=== PATIENT | female | born 1990 | race African-American/Black ===

== ENCOUNTER 2020-08-23 17:07 | Emergency (ER) | payer OTHER ==
[~2020-08-23] VITALS: Ht 185.4 cm; Wt 105.2 kg
[2020-08-23 18:56] LABS: BASO # 0.1 10^3/uL (0.0-0.2); BASO % 0.7 % (0.0-1.0); EOS # 0.1 10^3/uL (0.0-0.5); HEMATOCRIT 41.3 % (36.0-47.0); HEMOGLOBIN 13.6 g/dl (12.0-15.5); LYMPH # 2.6 10^3/uL (1.5-5.0); MEAN CORPUSCULAR HEMOGLOBIN 29.2 pg (27.0-33.0); MEAN CORPUSCULAR HGB CONC 32.9 g/dl (32.0-36.5); MEAN CORPUSCULAR VOLUME 88.8 fl (80.0-96.0); MONO # 0.6 10^3/uL (0.0-0.8); MONO % 7.3 % (0.0-5.0); NEUTROPHILS # 5.2 10^3/uL (1.5-8.5); NEUTROPHILS % 60.8 % (36.0-66.0); PLATELET COUNT, AUTOMATED 396 10^3/uL (150-450); RED BLOOD COUNT 4.65 10^6/uL (4.00-5.40); WHITE BLOOD COUNT 8.6 10^3/uL (4.0-10.0)
[2020-08-23 19:07] LABS: PARTIAL THROMBOPLASTIN TIME 32.7 SECONDS (24.2-38.5); PROTHROMBIN TIME 13.4 SECONDS (12.5-14.3)
[2020-08-23 19:10] LABS: D-DIMER QUANT 805.12 ng/ml (<500)
[2020-08-23 19:25] LABS: ALBUMIN 4.1 GM/DL (3.2-5.2); ALT/SGPT 26 U/L (12-78); BILIRUBIN,DIRECT < 0.1 MG/DL (0.0-0.2); BILIRUBIN,TOTAL 0.3 MG/DL (0.2-1.0); C REACTIVE PROTEIN QUANTITATIV < 0.30 MG/DL (0.00-0.30); TOTAL PROTEIN 8.4 GM/DL (6.4-8.2)
[2020-08-23 19:32] LABS: ERYTHROCYTE SEDIMENTATION RATE 18 mm/hr (0-20)
[2020-08-23] MEDS ORDERED: ISOVUE-370 76% 100ML VIAL As Ordered ONE (20:18)
--- NOTE | 2020-08-23 21:32 | REPVR ---
PROCEDURE INFORMATION: Exam: CT Angiography Chest With Contrast Exam date and time: 08/23/2020 8:42 PM Age: 29 years old Clinical indication: Chest pain TECHNIQUE: Imaging protocol: Computed tomographic angiography of the chest with contrast. 3D rendering (Not supervised by radiologist): MIP and/or 3D reconstructed images were created by the technologist. Radiation optimization: All CT scans at this facility use at least one of these dose optimization techniques: automated exposure control; mA and/or kV adjustment per patient size (includes targeted exams where dose is matched to clinical indication); or iterative reconstruction. Contrast material: ISOVUE 370; Contrast volume: 75 ml; Contrast route: INTRAVENOUS (IV); COMPARISON: No relevant prior studies available. FINDINGS: Pulmonary arteries: Normal. No pulmonary emboli. Aorta: Unremarkable. No aortic aneurysm. No aortic dissection. Lungs: Unremarkable. No consolidation. No masses. Pleural spaces: Unremarkable. No pneumothorax. No pleural effusion. Heart: Unremarkable. No cardiomegaly. No pericardial effusion. Lymph nodes: Unremarkable. No enlarged lymph nodes. Bones/joints: Unremarkable. No acute fracture. Soft tissues: Unremarkable. IMPRESSION: No acute findings. Electronically signed by: Jama Metz On 08/23/2020 21:32:30 PM
[2020-08-23] MEDS ORDERED: IBUP80TA PO (22:12)
[2020-08-23] MEDS ORDERED: BENA25CA4 PO (22:12)
[2020-08-23 22:21] VITALS: BP 121/69
--- NOTE | 2020-08-24 08:55 | ECGEPIP ---
[facility] - ED Test Date: 2020-08-23 Pat Name: TANIKA DANIEL Department: Room: - Gender: Female [employer]: : 1990 Requested By: CARRILLO Jay Order Number: [id number] Reading MD: Laisha Sherwood Measurements Intervals [place] Rate: 65 P: 49 OR: 151 QRS: 48 QRSD: 84 T: 35 QT: 398 QTc: 414 Interpretive Statements SINUS RHYTHM WITH SINUS ARRHYTHMIA NO PRIOR Electronically Signed on 08-24-2020 8:54:55 EST by Laisha Sherwood
== END 2020-08-23 22:31 | disposition home or self-care (01) ==
LOC: M ED 17:07
DX: R07.9 Chest pain, unspecified (principal); R05 Cough; T50.Z95A Adverse effect of other vaccines and biological substances, initial encounter; X58.XXXA Exposure to other specified factors, initial encounter; Y92.89 Other specified places as the place of occurrence of the external cause; Z91.018 Allergy to other foods; F17.210 Nicotine dependence, cigarettes, uncomplicated
CPT/HCPCS: 36415; 71275; 80047; 80076; 84484; 84702; 85025; 85379; 85610; 85652; 85730; 86140; 93005; 99284; Q9967

== ENCOUNTER 2020-08-25 15:23 | Emergency (ER) | payer OTHER ==
[~2020-08-25] VITALS: Ht 188 cm; Wt 106.2 kg
[~2020-08-25 15:23] MED LIST: BENA25CA4 PO; IBUP80TA PO
[2020-08-25 15:24] VITALS: BP 103/66
[2020-08-25] MEDS ORDERED: ONDANSETRON 4 MG ORAL DISINTEGRATING TAB PO ONE (16:00)
[2020-08-25] MEDS ORDERED: ONDA4TAB6 PO (16:00)
--- OUTSIDE RECORDS SUMMARY | 2020-08-25 16:33 | CCD ---
Author Author [facility] Address Unknown Phone Unavailable Support Name Relationship Address Phone [facility] Next Of Kin [address] [place] [address] Unavailable Re-disclosure Warning The records that you are about to access may contain information from federally-assisted alcohol or drug abuse programs. If such information is present, then the following federally mandated warning applies: This information has been disclosed to you from records protected by federal confidentiality rules (42 CFR part 2). The federal rules prohibit you from making any further disclosure of this information unless further disclosure is expressly permitted by the written consent of the person to whom it pertains or as otherwise permitted by 42 CFR part 2. A general authorization for the release of medical or other information is NOT sufficient for this purpose. The Federal rules restrict any use of the information to criminally investigate or prosecute any alcohol or drug abuse patient.The records that you are about to access may contain highly sensitive health information, the redisclosure of which is protected by Article 27-F of the [facility] Public Health law. If you continue you may have access to information: Regarding HIV / AIDS; Provided by facilities licensed or operated by the [facility] Office of Mental Health; or Provided by the [facility] Office for People With Developmental Disabilities. If such information is present, then the following [facility] mandated warning applies: This information has been disclosed to you from confidential records which are protected by state law. State law prohibits you from making any further disclosure of this information without the specific written consent of the person to whom it pertains, or as otherwise permitted by law. Any unauthorized further disclosure in violation of state law may result in a fine or shelter sentence or both. A general authorization for the release of medical or other information is NOT sufficient authorization for further disc losure. Insurance Providers Payer name Policy type / Coverage type Policy ID Covered democrat ID Covered democrat's relationship to tanner Policy Tanner Plan Information [facility] [employer] [id number]
--- OUTSIDE RECORDS SUMMARY | 2020-08-25 16:39 | CCD ---
Author Author [facility] Address Unknown Phone Unavailable Support Name Relationship Address Phone [facility] Next Of Kin [address] [place] [address] Unavailable Re-disclosure Warning The records that you [...] is protected by Article 27-F of the [facility] Public Health law. If you continue you may have access to information: Regarding HIV / AIDS; Provided by facilities licensed or operated by the [facility] Office of Mental Health; or Provided by the [facility] Office for People With Developmental Disabilities. If such information is present, then the following [facility] mandated warning applies: This information has [...] law may result in a fine or group home sentence or both. A general authorization for the release of medical or other information is NOT sufficient authorization for further disc losure. Insurance Providers Payer name Policy type / Coverage type Policy ID Covered alliance party ID Covered alliance party's relationship to tanner Policy Tanner Plan Information [facility] [employer] [id number]
== END 2020-08-25 16:09 | disposition home or self-care (01) ==
LOC: M ED 15:23
DX: R11.2 Nausea with vomiting, unspecified (principal); R19.7 Diarrhea, unspecified; F41.9 Anxiety disorder, unspecified; F17.200 Nicotine dependence, unspecified, uncomplicated; Z91.013 Allergy to seafood
CPT/HCPCS: 99282; Q0162

== ENCOUNTER 2020-09-29 14:21 | Emergency (ER) | payer OTHER ==
[~2020-09-29] VITALS: Ht 182.9 cm; Wt 100.4 kg
[~2020-09-29 14:21] MED LIST changes: +ONDA4TAB6 PO
[2020-09-29] MEDS ORDERED: PREPARATION H SUPP (HEMORRHOID) PR ONE (16:10)
[2020-09-29 17:17] VITALS: BP 114/58
== END 2020-09-29 17:18 | disposition home or self-care (01) ==
LOC: M ED 14:21
DX: K64.8 Other hemorrhoids (principal); F17.200 Nicotine dependence, unspecified, uncomplicated; F41.9 Anxiety disorder, unspecified

== ENCOUNTER 2020-10-22 00:29 | Emergency (ER) | payer OTHER ==
[~2020-10-22] VITALS: Ht 180.3 cm; Wt 94.1 kg
[2020-10-22] MEDS ORDERED: ACET-683 PO (00:39)
[2020-10-22] MEDS ORDERED: TRAM50TA2 PO (00:39)
[2020-10-22 01:28] VITALS: BP 136/82
[2020-10-22 01:48] LABS: BASO % 0.2 % (0.0-1.0); EOS % 0.1 % (0.0-3.0); HEMATOCRIT 41.3 % (36.0-47.0); HEMOGLOBIN 12.2 g/dl (12.0-15.5); LYMPH # 1.2 10^3/uL (1.5-5.0); LYMPH % 9.8 % (24.0-44.0); MEAN CORPUSCULAR HEMOGLOBIN 29.1 pg (27.0-33.0); MEAN CORPUSCULAR HGB CONC 29.5 g/dl (32.0-36.5); MEAN CORPUSCULAR VOLUME 98.6 fl (80.0-96.0); MONO # 0.8 10^3/uL (0.0-0.8); MONO % 6.6 % (2.0-8.0); NEUTROPHILS # 10.2 10^3/uL (1.5-8.5); PLATELET COUNT, AUTOMATED 297 10^3/uL (150-450); RED BLOOD COUNT 4.19 10^6/uL (4.00-5.40); WHITE BLOOD COUNT 12.3 10^3/uL (4.0-10.0)
[2020-10-22 02:07] LABS: ALBUMIN 3.3 GM/DL (3.2-5.2); ALT/SGPT 104 U/L (12-78); BILIRUBIN,DIRECT < 0.1 MG/DL (0.0-0.2); BILIRUBIN,TOTAL 0.1 MG/DL (0.2-1.0); BLOOD UREA NITROGEN 10 MG/DL (7-18); CALCIUM LEVEL 8.6 MG/DL (8.5-10.1); CARBON DIOXIDE LEVEL 28 MEQ/L (21-32); CHLORIDE LEVEL 109 MEQ/L (98-107); CK-MB VALUE MASS 2.4 NG/ML (<3.6); CPK CREATINE PHOSPHOKINASE 146 U/L (26-192); GLOMERULAR FILTRATION RATE > 60.0 (>60); GLUCOSE, FASTING 115 MG/DL (70-100); LIPASE 97 U/L (73-393); MB/CK RELATIVE INDEX 1.64 (< OR =4); POTASSIUM SERUM 4.3 MEQ/L (3.5-5.1); SODIUM LEVEL 142 MEQ/L (136-145); TOTAL PROTEIN 7.1 GM/DL (6.4-8.2); TROPONIN I < 0.02 NG/ML (< 0.10)
--- NOTE | 2020-10-22 20:53 | ECGEPIP ---
[facility] - ED Test Date: 2020-10-22 Pat Name: TANIKA DANIEL Department: Room: - Gender: Female [employer]: SACHIN : 1990 Requested By: JAZIEL Sotomayor Order Number: [id number] Reading MD: Gwyn Escobedo Measurements Intervals [place] Rate: 55 P: 44 DC: 138 QRS: 40 QRSD: 76 T: 24 QT: 424 QTc: 405 Interpretive Statements Sinus bradycardia SIMILAR TO 08/23/20 Electronically Signed on 10-22-2020 20:52:39 EDT by Gwyn Escobedo
== END 2020-10-22 02:00 | disposition left against medical advice (07) ==
LOC: M ED 00:29
DX: Z53.20 Procedure and treatment not carried out because of patient's decision for unspecified reasons (principal)

== ENCOUNTER 2021-06-20 15:40 | Inpatient (IN) | payer OTHER ==
[~2021-06-20] VITALS: Ht 182.9 cm; Wt 95.5 kg
[~2021-06-20 15:40] MED LIST changes: +ACET-683 PO; +TRAM50TA2 PO
[2021-06-20 16:15] LABS: HEMATOCRIT 44.7 % (36.0-47.0); HEMOGLOBIN 14.4 g/dl (12.0-15.5); MEAN CORPUSCULAR HGB CONC 32.2 g/dl (32.0-36.5); MEAN CORPUSCULAR VOLUME 89.9 fl (80.0-96.0); PLATELET COUNT, AUTOMATED 422 10^3/uL (150-450); RED BLOOD COUNT 4.97 10^6/uL (4.00-5.40); WHITE BLOOD COUNT 7.3 10^3/uL (4.0-10.0)
[2021-06-20 16:54] LABS: ACETAMINOPHEN LEVEL < 2.0 UG/ML (10.0-30.0); ALT/SGPT 40 U/L (12-78); BILIRUBIN,DIRECT 0.2 MG/DL (0.0-0.2); BILIRUBIN,TOTAL 0.5 MG/DL (0.2-1.0); BLOOD UREA NITROGEN 11 MG/DL (7-18); CALCIUM LEVEL 9.5 MG/DL (8.5-10.1); CARBON DIOXIDE LEVEL 29 MEQ/L (21-32); CHLORIDE LEVEL 104 MEQ/L (98-107); CREATININE FOR GFR 0.71 MG/DL (0.55-1.30); ETHYL ALCOHOL (ETHANOL) < 0.003 % (0.000-0.010); GLOMERULAR FILTRATION RATE > 60.0 (>60); GLUCOSE, FASTING 94 MG/DL (70-100); POTASSIUM SERUM 4.1 MEQ/L (3.5-5.1); SALICYLATE LEVEL < 1.7 MG/DL (5.0-30.0); SODIUM LEVEL 139 MEQ/L (136-145); THYROID STIMULATING HORMONE 0.795 uIU/ML (0.358-3.740)
[2021-06-20 16:55] LABS: HCG, SERUM QUALITATIVE NEGATIVE (NEGATIVE)
[2021-06-20 17:20] LABS: AMPHETAMINES LEVEL URINE NEGATIVE (NEGATIVE); BARBITURATES URINE NEGATIVE (NEGATIVE); BENZODIAZEPINES URINE NEGATIVE (NEGATIVE); CANNABINOIDS URINE NEGATIVE (NEGATIVE); COCAINE METABOLITE URINE NEGATIVE (NEGATIVE); METHADONE URINE NEGATIVE (NEGATIVE); OPIATES URINE NEGATIVE (NEGATIVE); PHENCYCLIDINE URINE NEGATIVE (NEGATIVE)
--- OUTSIDE RECORDS SUMMARY | 2021-06-20 18:08 | CCD ---
Author Author [facility] Organization [facility] Address Unknown Phone Unavailable Care Team Providers Care Fashion Editor Name Role Phone Maxx LEYVA MD Unavailable Unavailable Maxx LEYVA MD Unavailable Unavailable Maxx LEYVA MD Unavailable Unavailable Maxx LEYVA MD Unavailable Unavailable Maxx LEYVA MD Unavailable Unavailable Maxx LEYVA MD Unavailable Unavailable Maxx LEYVA MD Unavailable Unavailable Maxx LEYVA MD Unavailable Unavailable Maxx LEYVA MD Unavailable Unavailable Maxx LEYVA MD Unavailable Unavailable Maxx LEYVA MD Unavailable Unavailable Maxx LEYVA MD Unavailable Unavailable Maxx LEYVA MD Unavailable Unavailable Maxx LEYVA MD Unavailable Unavailable Maxx LEYVA MD Unavailable Unavailable Maxx LEYVA MD Unavailable Unavailable TURRIN, ANTHONY Unavailable Unavailable TURRIN, ANTHONY Unavailable Unavailable TURRIN, ANTHONY Unavailable Unavailable CHELSEARIN, ANTHONY Unavailable Unavailable Maxx LEYVA MD Unavailable Unavailable Maxx LEYVA MD Unavailable Unavailable Maxx LEYVA MD Unavailable Unavailable Maxx LEYVA MD Unavailable Unavailable Maxx LEYVA MD Unavailable Unavailable Maxx LEYVA MD Unavailable Unavailable Maxx LEYVA MD Unavailable Unavailable Maxx LEYVA MD Unavailable Unavailable Maxx LEYVA MD Unavailable Unavailable Maxx LEYVA MD Unavailable Unavailable Maxx LEYVA MD Unavailable Unavailable Maxx LEYVA MD Unavailable Unavailable ZULICK, C CHACORTA MD Unavailable Unavailable ZULICK, C CHACORTA MD Unavailable Unavailable ZULICK, C CHACORTA MD Unavailable Unavailable ZULICK, C CHACORTA MD Unavailable Unavailable [facility] Unavailable Unavailable CHANLIECCO, C ADI MD Unavailable Unavailable CHANLIECCO, C ADI MD Unavailable Unavailable CHANLIECCO, C ADI MD Unavailable Unavailable CHANLIECCO, C ADI MD Unavailable Unavailable CHANLIECCO, C ADI MD Unavailable Unavailable CHANLIECCO, C ADI MD Unavailable Unavailable CHANLIECCO, C ADI MD Unavailable Unavailable CHANLIECCO, C ADI MD Unavailable Unavailable CHANLIECCO, C ADI MD Unavailable Unavailable CHANLIECCO, C ADI MD Unavailable Unavailable CHANLIECCO, C ADI MD Unavailable Unavailable Re-disclosure Warning The records that you [...] is protected by Article 27-F of the [place] Public Health law. If you continue you may have access to information: Regarding HIV / AIDS; Provided by facilities licensed or operated by the [facility] Office of Mental Health; or Provided by the [facility] Office for People With Developmental Disabilities. If such information is present, then the following [facility] mandated warning applies: This information has [...] law may result in a fine or mcc sentence or both. A general authorization for the release of medical or other information is NOT sufficient authorization for further disc losure. Allergies and Adverse Reactions Type Description Substance Reaction Status Data Source(s ) No Known Drug Allergies No Known Drug Allergies [facility] Propensity to adverse reactions TREES AND DOGS TREES AND DOGS [facility] Propensity to adverse reactions shellfish shellfish [facility] Encounters Encounter Providers Location Date Indications Data Source(s ) Outpatient Attender: CHACORTA LEYVA MDAtt darinel: ANTHONY ZAVALAConsultant: [facility] 10/20/2020 07:05:00 PM EDT - 10/21/2020 06:15:00 PM EDT [facility] Patient discharged. Outpatient Attender: CHACORTA LEYVA MD Family Practice 10/20/2020 0 2:00:00 PM EDT [facility] ([facility]) Outpatient Attender: CHACORTA LEYVA MD 2020 11:16:36 AM EDT - 10/20/2020 03:13:00 PM EDT [facility] Patient discharged. Outpatient Attender: CHACORTA LEYVA MD 2020 10:53:43 AM EDT - 11/07/2020 01:22:00 PM EDT [facility] Patient discharged. Outpatient Attender: CHACORTA LEYVA MDConsultant: [facility] 10/20/2020 09:32:00 AM EDT - 10/20/2020 09:32:00 AM EDT [facility] Emergency Attender: ADI TAPIA MDConsultant: [facility] 10/08/2020 11:07:00 AM EDT - 10/08/2020 12:21:00 PM EDT [facility] Patient discharged. Immunizations Vaccine Date Status Description Data Source(s) COVID-19 VACCINE Pfizer 08/23/2020 12:00:00 AM EST completed [facility] Vaccine Series Complete: NOThis Data was Submitted to [facility] Via Actual[facility]eds. Medications Medication Brand Name Start Date Product Form Dose Route Admi nistrative Instructions Pharmacy Instructions Status Indications Reaction Description Data Source(s) tramadol hydrochloride 50 MG Oral Tablet Tramadol HCL 10/20/2020 12:00:00 AM EDT active [facility] ([facility]) Insurance Providers Payer name Policy type / Coverage type Policy ID Covered green party ID Covered green party's relationship to dias Policy Dias Plan Information [facility] ACTIVE DUTY [id number] SP [id number] [facility] - O/P [id number] 18 [id number] [facility] [place] [id number] 18 [id number] [facility] - PHYSICIAN [id number] [id number] 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 Diagnosis 10/20/2020 07:05:00 PM EDT [facility] [id number] Encounter for other preprocedural examin ation Encounter for other preprocedural examination Diagnosis 10/20/2020 02:36:00 PM EDT [facility] Z1152 ENCOUNTER FOR SCREENING FOR COVID-19 ENCOUNTER F OR SCREENING FOR COVID-19 Diagnosis 10/20/2020 09:32:00 AM EDT [facility] [id number] Nicotine dependence, cigarettes, uncompl icated Nicotine dependence, cigarettes, uncomplicated Diagnosis 10/08/2020 11:07:00 AM EDT [facility] K649 Unspecified hemorrhoids Unspecified hemorrhoids Diagno sis 10/08/2020 11:07:00 AM EDT [facility] K625 Hemorrhage of anus and rectum Hemorrhage of anus and r ectum Diagnosis 10/08/2020 11:07:00 AM EDT [facility] Surgeries/Procedures No Information Results ID Date Data Source [id number] 10/20/2020 07:05:00 PM EDT [facility] 1 OrderSheet [facility] Emergency Department [address] [place] [address] Phone #: ext- [phone] 10/20/2020 19:04 Patient: TANIKA DANIEL I Sex: F : 1990 Age: 29yWEIGHT:93.8 kg (S)ALLERGIES: Shellfish-derived ProductsCHIEF COMPLAINT: hemorrhoids, rectal painDIAGNOSIS: HemorrhoidsLAB ORDERSOrder Description Priority Entered Acknowledged InitialedDIAGNOSTIC STUDY ORDERSOrder Description Priority Entered Acknowledged InitialedMEDICATION/IV/DRIP/FLUID ORDERSOrder Description Priority Entered Acknowledged InitialedLR IV : 50 mL/hr 19:41 10/20/2020 19:59 Anthony Rodriguez RN, M.D.;Dilaudid IVP 1 mg 19:41 10/20/2020 20:00 Harvinder(HIGH ALERT Anthony Zavala RNMEDICATION) Nino;Lidocaine Viscous 19:42 10/20/2020 20:00 HarvinderPO 15 mL (apply to Anthony Zavala RNhemmorhoid) Nino;GENERAL ORDERSOrder Description Priority Entered Acknowledged InitialedConsult - General 19:59 10/20/2020 19:59 StevenSurgery Anthony Zavala RN, M.D.;[Electronically signed by Harvinder Ortega RN (22:05 10/20/2020)][Electronically signed by Anthony Zavala M.D. (22:50 10/20/2020)][Electronically locked by Harvinder Ortega RN (22:05 10/20/2020)] Name Value Range Interpretation Code Description Data Jada rce(s) Supporting Document(s) ID Date Data Source [id number] 10/20/2020 07:05:00 PM EDT [facility] 1 Medication Reconciliation Report [facility] Emergency Department [address] [place] [address] Phone #: ext- [phone] 10/20/2020 19:04 Patient: TANIKA DANIEL I Sex: F : 1990 Age: 29yWeight: 93.8 kgHeight/Length: 71 in.BMI: 28.9ALLERGIES: Shellfish-derived ProductsThe patient's Home Medications are listed below:THE FOLLOWING MEDICATIONS NEED TO BE RECONCILED: Preparation H External, suppisotory and cream Tramadol HCL Oral 50 mg, 2x a dayThe source(s) of the original Home Medication information:patientThe following Medications were given to the patient in the Emergency Department:LR [IV] IV Fluids bolus 0, then 50 mL/hr, administered: 19:59 1Dilaudid [IVP] IVP 1 mg, administered: 20:00 1Lidocaine Viscous [PO] PO 15 mL, administered: 20:00 10/20/2020The following Medications were prescribed to the patient:None. Name Value Range Interpretation Code Description Data Jada rce(s) Supporting Document(s) ID Date Data Source [id number] 10/20/2020 07:05:00 PM EDT [facility] 1 Medication Administration Record [facility] Emergency Department [address] [place] [address] Phone #: ext- [phone] 10/20/2020 19:04 Patient: TANIKA DANIEL I Sex: F : 1990 Age: 29yWeight: 93.8 kgHeight/Length: 71 inBMI: 28.9ALLERGIES: Shellfish-derived Products Date/Time Medication Administered Medication OrderedStart LR [IV] LR IV : 50 mL/hr19:59 10/20/2020 Dose: IV FluidsStevmarnie Ortega RN Rate: 50 mL/hr---- Dispensed: 1000 mL bagContinued Upon Admission Site: #1 left AC21:54 10/20/2020teven YAZMIN OrtegaGiven DILAUDID [IVP] (HYDROMORPHONE Dilaudid IVP 1 mg (HIGH ALERT20:00 10/20/2020 HCL) MEDICATION)Harvinder Ortega RN Dose: 1 mg IVP Site: #1 left ACGiven LIDOCAINE VISCOUS [PO] Lidocaine Viscous PO 15 mL20:00 10/20/2020 Dose: 15 mL Solution/Elixir PO (apply to hemmorhoid)Harvinder Ortega RN Name Value Range Interpretation Code Description Data Jada rce(s) Supporting Document(s) ID Date Data Source [id number] 10/20/2020 07:05:00 PM EDT [facility] 1 General Instructions [facility] Emergency Department [address] [place] [address] Phone #: ext- [phone] 10/20/2020 19:04 Patient: TANIKA DANIEL I Sex: F : 1990 Age: 29yThrombosed external hemorrhoids (with severe intractable rectal pain).(Electronically signed by Anthony Zavala M.D. 10/20/2020 22:50) Name Value Range Interpretation Code Description Data Jada rce(s) Supporting Document(s) ID Date Data Source [id number] 10/20/2020 07:05:00 PM EDT [facility] 1 Clinical Report - Nurses [facility] Emergency Department [address] [place] [address] Phone #: ext- [phone] 10/20/2020 19:04 Patient: TANIKA DANIEL I Sex: F : 1990 Age: 29yTRIAGEArrived by private vehicle. Historian: patient. Accompanied by friend.Triage time: 19:12 10/20/2020. Acuity: LEVEL 4.Chief Complaint: (hemoroid pain).Onset was gradual. (2 months ago). ( surgery to remove hemmoroids tomorrow at this hospital).Treatment [employer]:(preparation H).SEP SIS SCREEN: SIRS SCREEN NEGATIVE. SEPSIS SCREEN NEGATIVE. No suspected or confirmedsigns of infection present. --19:21 10/20/20 Harvinder Ortega RN19:14 10/20/20. BP: 102/53 (regular adult cuff) taken on the left arm, via an automated monitor, whilelying. MAP: 69. HR: 69 (regular, normal rate and strong). RR: 20 (regular, unlabored and normal). [id number]: 98% on room air. Temp: 98.1 F (oral). Pain level now: 04/24. --19:10/20/20 Harvinder Ortega RN.Weight: 93.8 kg stated. Height/Length: 71 inches Per Patient. BMI: 28.9. --19:18 10/20/20 Harvinder Ortega RN.MedicationsPreparation H External (suppisotory and cream). --19:15 10/20/20 Harvinder Ortega RN Tramadol HCL Oral 50 mg, 2x a day. --19:17 10/20/20 Harvinder Ortega RN.AllergiesShellfish-derived Products. --19:15 10/20/20 Harvinder Ortega RN.PROBLEMS:Hemorrhoids.Rectal Bleed. --19:17 10/20/20 Harvinder Ortega RN.Medication/allergy information source: the patient. --19:10/20/20 Harvinder Ortega RN.HistorySOCIAL HX: Heavy tobacco smoker (cigarette)- less than 1 pack per day. No alcohol use or drug use.She was offered HIV testing but declined and hepatitis C testing but declined. She has not traveledoutside the [place]Infectious disease exposure: No infectious disease exposure. 2 Clinical Report - Nurses [facility] Emergency Department [address] [place] [address] Phone #: ext- [phone] 10/20/2020 19:04 [facility]: [id number] Sex[facility] F : 1990 Age: 29y SELF HARM ASSESSMENT: Self harm assessment was performed. The patient answered "no" to the question(s) "Have you recently felt down, depressed, or hopeless?", "Do you have thoughts of harming or killing yourself?", "Do you have a plan for harming or killing yourself?", "Have you recently had thoughts about harming or killing others?", "Do you have any dangerous items in your posse ssion?", "Have you noticed less interest or pleasure in doing things?", "Are you here because you tried to hurt yourself?" and "Have you ever tried to hurt yourself before today?". ABUSE ASSESSMENT: No report of abuse. FALL RISK ASSESSMENT: Fall risk assessment completed. Risk factors identified include patient impairment of mobility. Fall interventions initiated. Side rails up x2. Bed in low position. Brakes on. Call light in reach of patient. Instructions given to patient. Verbalizes understanding. --10/20/20 Harvinder Ortega RN. Assessment The patient states feels the same. --10/20/20 Harvinder Ortega RN.PHYSICAL ASSESSMENTAmbulatory to room.GENERAL / NEURO / PSYCH: Alert. Oriented X 4. Appears in distress.HEENT: Pupils equal, round and reactive to lig ht. No facial asymmetry noted. Mucous membranes arepink.RESPIRATORY: Respirations not labored. Chest nontender. Breath sounds within normal limits.CVS: Capillary refill less than 2 seconds. Pulses within normal limits.GI / : Abdomen soft and nontender and normal bowel sounds.SKIN: Skin intact. Skin is warm and dry. Normal skin turgor. --10/20/20 Harvinder Ortega RN.NURSING PROGRESS NOTESPatient gowned. Head of bed elevated 30 degrees. Reassurance given to the patient. Call light placedin reach of patient. Bed placed in lowest position. Brakes of bed on. Patient ready for evaluation- EDphysician notified. --:10/20/20 Harvinder Ortega RN 19:59 10/20/2020 Site #1 started via IV in the left antecubital space with an 20g angiocath, with aseptic technique and good blood return; one attempt. Saline lock flushed with 10 mL saline. --:10/20/20 Harvinder Ortega RN 19:59 10/20/2020 Started bag #1 1000 mL IV Fluids LR; at 50 mL/hr via site #1 via IV pump. Allergies verified and confirmed 5 rights. IV patency established. IV site checked: no pain, redness, or swelling. IV flushed thoroughly pre- and post-medication administration. Information reviewed with patient including reason for taking this medication, signs of allergic reaction and precautions. Verbalizes understanding. --10/20/20 Harvinder Oretga RN 20:00 10/20/2020 Dilaudid (HYDROmorphone HCl) IVP 1 mg given over 2 minute(s) via site #1. Allergies 3 Clinical Report - Nurses [facility] Emergency Department [address] [place] [address] Phone #: ext- [phone] 10/20/2020 19:04 Patient: TANIKA DANIEL I Sex: F : 1990 Age: 29y verified and confirmed 5 rights. IV patency established. IV site checked: no pain, redness, or swelling. IV flushed thoroughly pre- and post-medication administration. Information reviewed with patient including reason for taking this medication, signs of allergic reaction, precautions and sedative warning. Verbalizes understanding. --20:10/20/20 Harvinder Ortega RN 20:00 10/20/2020 Lidocaine Viscous PO Solution/Elixir 15 mL given. Allergies verified and confirmed 5 rights. Information reviewed with patient including reason for taking this medication, signs of allergic reaction and precautions. Verbalizes understanding. --20:00 4/7/21 Harvinder Ortega RN 21:23 10/20/20. BP: 105/72 (regular adult cuff) taken on the right arm, while lying. MAP: 83. HR: 72 (regular, normal rate and strong). RR: 16 (regular, unlabored and normal). O2 saturation: 98% on room air. Temp: 97.2 F (oral). Pain level now: 12/23. --:10/20/20 Harvinder Ortega RN Reassessment acuity: LEVEL 4. Reassessment after medication administered. No adverse reaction. Pain still present but improving. She reports no complaints. RESPIRATORY: No respiratory distress. Breath sounds normal. CVS: Heart rhythm abnormal. SKIN: Skin is warm. Skin color within normal limits. --:10/20/20 Harvinder Ortega RN 21:54 10/20/2020 IV Fluids LR via IV site #1 Continued: upon admission at the rate of 50 mL/hr. 750 mL remaining bag #1. IV patency established. IV site checked: no pain, redness, or swelling. IV flushed thoroughly. --22:04 10/20/20 Harvinder Ortega RN.DISPOSITION / DISCHARGE Disposition: observation for further evaluation. Report was given to a nurse via a phone call. Report included information regarding patient's treatment and allergies and current vital signs. Report included treatment information regarding medications given or pending; type and amount of IV fluids and med ications infusing. All questions were answered. Report was acknowledged and care was transferred. Bed obtained and ready. --21:45 10/20/20 Harvinder Ortega RN Transported via stretcher with IV and mask. Patient's personal items; items were placed in belongings bag and transported with the patient. --22:03 10/20/20 Harvinder Ortega RN 22:01 10/20/20. BP: 108/62 (regular adult cuff) taken on the right arm, via an automated monitor, while lying. MAP: 77. HR: 69 (regular and normal rate). RR: 18 (regular, unlabored and normal). O2 saturation: 100% on room air. Temp: 97.2 F (oral). Pain level now: 12/23. --22:03 10/20/20 Harvinder Ortega RN Departure time: 22:03 10/20/2020. --22:03 10/20/20 Harvinder Ortega RN Departure time: 21:50 10/20/2020. --22:04 10/20/20 Harvinder Ortega RN. 4 Clinical Report - Nurses [facility] Emergency Department [address] [place] [address] Phone #: ext- [phone] 10/20/2020 19:04 Patient: TANIKA DANIEL I Sex: F : 1990 Age: 29yLocked/Released at 10/20/2020 22:05 by Harvinder Ortega RN Name Value Range Interpretation Code Description Data Jada rce(s) Supporting Document(s) ID Date Data Source [id number] 10/20/2020 07:05:00 PM EDT [facility] 1 Clinical Report - Physicians/Mid Levels [facility] Emergency Department [address] [place] [address] Phone #: ext- [phone] 10/20/2020 19:04 Patient: TANIKA DANIEL I Sex: F : 1990 Age: 29y Time Seen: 19:26 10/20/2020; initial patient contact. Arrived- By private vehicle. Historian- patient. Disposition decision: 19:55 10/20/2020.HISTORY OF PRESENT ILLNESS Chief Complaint: RECTAL PAIN and HEMORRHOIDS. This started 2 months ago, has been severe and is still present and now worse. It was gradual in onset and has been constant. The patient has had rectal pain but not had dark stools, rectal bleeding or hard stools. No constipation, nausea, vomiting, diarrhea or abdominal pain. (pt has known hemorrhoid x 2 months, getting worse, seen here recently, saw Dr. Leyva, surgeon today, and is scheduled for surgery tomorrow since he couldn't do it today; pt states cream and tramadol don't work and she is in agony, crying). No recent travel. No known contact with a sick individual. Similar symptoms previously. Patient has had similar symptoms chronically. Recent medical care: The patient was seen recently at this facility. ( by Dr. Leyva, surgeon).REVIEW OF SYSTEMSNo dizziness, fainting episodes, weakness, fever or blurred vision. N o sore throat, epistaxis, cough,difficulty breathing or chest pain. No hematuria, skin rash, enlarged lymph nodes, chills or joint pain. Allother systems reviewed and are negative.PAST HISTORYSee nurses notes. Problems: Hemorrhoids. Rectal Bleed. Additional Surgeries: Ankle surgery. Colonoscopy. Medications: Tramadol HCL Oral 50 mg, 2x a day. Preparation H External (suppisotory and cream). Allergies: Shellfish-derived Products.SOCIAL HISTORYHeavy tobacco smoker- less than 1 pack per day. No alcohol use or drug use. 2 Clinical Report - Physicians/Mid Levels [facility] Emergency Department [address] [place] [address] Phone #: ext- [phone] 10/20/2020 19:04 Patient: TANIKA DANIEL I Sex: F : 1990 Age: 29yADDITIONAL NOTESThe nursing notes have been reviewed with agreement regarding the chief complaint, HPI, ROS, PMH andpatient medications and aller gies.PHYSICAL EXAMVital Signs: 10/20/2020 19:14 BP: lying 102/53. MAP: 69. HR: 69. RR: 20. O2 saturation: 98% on roomair. Temp: 98.1 F. Pain level now: 10/10. Have been reviewed. Oxygen saturation normal.Appearance: Alert. Appears to be in pain. Patient in severe distress. Distress appears due to pain.Eyes: Pupils equal, round and reactive to light. Eyes normal inspection.ENT: Nose normal. Pharynx normal.Neck: Normal inspection. Neck supple.CVS: Normal heart rate and rhythm. Heart sounds normal. Pulses normal.Respiratory: No respiratory distress. Painless inspiration. Breath sounds normal.Abdomen: Soft and nontender. Bowel sounds normal. No organomegaly. No mass. Femoral pulsesequal.Back: Normal inspection.Rectal: Severely tender digital exam. Unable to examine digitally. Inflamed and thrombosed externalhemorrhoids (large). (pt has large inflamed indurated hemorrhoid, thrombosed, cannot touch, extremelypainful).Skin: Skin warm and dry. Normal skin color. No rash. Normal skin turgor.Extremities: Extremities exhibit normal ROM. No lower extremity edema.Neuro: Oriented X 3. No motor deficit. No sensory deficit.PROGRESS AND PROCEDURESCourse of Care: 19:51 10/20/20. pt is in extreme pain from large inflamed thrombosed externalhemorrhoid, scheduled for surgery tomorrow; case discussed w Dr. Leyva, surgeon, who will admit for paincontrol, see orders; we will give some dilaudid iv and viscous lidocaine before admission; pt had bloodwork and Covid testing today. Critical care performed (60 minutes). Time is exclusive of separately billable procedures. Time includes: direct patient care, patient reassessment, coordination of patient care, medical consultation and documentation of patient care- see progress notes. Patient counseled in person regarding the patient's stable condition, diagnosis and need for admission. Patient agrees with plan of care. Disposition: Condition: good and stable. Admit decision based on need for further evaluation, observation, IV therapy and medications and pain contr ol.CLINICAL IMPRESSION Thrombosed external hemorrhoids (with severe intractable rectal pain). 3 Clinical Report - Physicians/Mid Levels [facility] Emergency Department [address] [place] [address] Phone #: ext- [phone] 10/20/2020 19:04 Patient: TANIKA DANIEL I Sex: F : 1990 Age: 29y(Electronically signed by Anthony Zavala M.D. 10/20/2020 22:50) Name Value Range Interpretation Code Description Data Jada rce(s) Supporting Document(s) ID Date Data Source [id number] 10/20/2020 10:23:00 AM EDT [facility] Name Value Range Interpretation Code Description Data Jada rce(s) Supporting Document(s) COVID19 Case rprt NOT DETECTED [facility] This lab was ordered by [facility] and reported by [facility]. ID Date Data Source [id number] 10/20/2020 11:15:00 AM EDT [facility] NOT DETECTEDNOT DETECTED{ PROC EDURAL CONTROL VALID KIT LOT # _[id number] 10/20/20.1115.TAD. KIT EXP DATE _10.27.20 10/20/20.1115.TAD. NORMAL RANGE IS NOT DETECTEDNEGATIVE RESULTS SHOULD BE TREATED PRESUMPTIVE AND, IF INCONSISTENT WITHCLINICAL SIGNS AND SYMPTOMS OR NECESSARY FOR PATIENT MANAGEMENT, SHOULD BETESTED WITH DIFFERENT AUTHORIZED OR CLEARED MOLECULAR TESTS. NEGATIVE RESULTSDO NOT PRECLUDE SARS-CoV-2 INFECTION AND SHOULD NOT BE USED THE SOLE BASISFOR PATIENT MANAGEMENT DECISIONS. Name Value Range Interpretation Code Description Data Jada rce(s) Supporting Document(s) ID Date Data Source [id number] 10/20/2020 10:55:00 AM EDT [facility] Name Value Range Interpretation Code Description Data Jada rce(s) Supporting Document(s) HCG SERUM QUAL NEGATIVE NORMAL: NEGATIVE [facility] HCG SERUM QL REENTER NEGATIVE NORMAL: NEGATIVE [facility] { KIT LOT # [id number] ){ KIT EXP DATE 04.14.22 ){ PROCEDURAL CONTROL VALID ) ID Date Data Source [id number] 10/08/2020 11:07:00 AM EDT [facility] 1 OrderSheet [facility] Emergency Department [address] [place] [address] Phone #: ext- [phone] 10/08/2020 10:54 Patient: TANIKA DANIEL I Sex: F : 1990 Age: 29yWEIGHT:92.0 kg (S)ALLERGIES: Shellfish-derived ProductsCHIEF COMPLAINT: rectal bleeding, rectal pain, hemorrhoidsDIAGNOSIS: Rectal hemorrhage, HemorrhoidsLAB ORDERSOrder Description Priority Entered Acknowledged InitialedCBC w Diff STAT 11:16 10/08/2020 11:36 Ron Olsen; Idania MayCMP STAT 11:16 10/08/2020 11:36 Ron Olsen; Idania MayUrinalysis (Clean STAT 11:16 11:33 Adarsh EDCatch) Ron TYLER; Olesya Castillo [id number] Blood Stool 11:16 10/08/2020 11:22 Raúl,Diagnostic 1 slide Ron TYLER; Idania MayDIAGNOSTIC STUDY ORDERSOrder Description Priority Entered Acknowledged InitialedMEDICATION/IV/DRIP/FLUID ORDERSOrder Description Priority Entered Acknowledged InitialedAcetaminophen 1 g 11:19 10/08/2020 11:36 Raúl,CARMELA X1 dose: 1000 Ron TYLER; Idania Maymg (NOW x1)Valium PO 5 mg 11:23 10/08/2020 Cancelled: Other 11:26 Ron TYLER; PAGENERAL ORDERSOrder Description Priority Entered Acknowledged Initialed[Electronically signed by Idania Olsen R.N. (12:21 10/08/2020)][Electronically signed by Ron Campbell (12:36 10/08/2020)][Electronically locked by Idania Olsen R.N. (12:21 10/08/2020)] Name Value Range Interpretation Code Description Data Jada rce(s) Supporting Document(s) ID Date Data Source [id number] 10/08/2020 11:07:00 AM EDT [facility] 1 Medication Reconciliation Report [facility] Emergency Department [address] [place] [address] Phone #: ext- [phone] 10/08/2020 10:54 Patient: TANIKA DANIEL I Sex: F : 1990 Age: 29yWeight: 92.0 kgHeight/Length: 72 in.BMI: 27.5ALLERGIES: Shellfish-derived ProductsThe patient's Home Medications are listed below:CONTINUE TAKING THE FOLLOWING MEDICATIONS: Preparation H External, suppisotory and creamThe source(s) of the original Home Medication information:Not obtained.The following Medications were given to the patient in the Emergency Department:Acetaminophen [PO] PO 1000 mg, administered: 11:36 10/08/2020The following Medications were prescribed to the patient:None. Name Value Range Interpretation Code Description Data Jada rce(s) Supporting Document(s) ID Date Data Source [id number] 10/08/2020 11:07:00 AM EDT [facility] 1 Medication Administration Record [facility] Emergency Department [address] [place] [address] Phone #: ext- [phone] 10/08/2020 10:54 Patient: TANIKA DANIEL I Sex: F : 1990 Age: 29yWeight: 92.0 kgHeight/Length: 72 inBMI: 27.5ALLERGIES: Shellfish-derived Products Date/Time Medication Administered Medication OrderedGiven ACETAMINOPHEN [PO] Acetaminophen 1 g PO X1 dose:11:36 10/08/2020 Dose: 1000 mg Tablets PO 1000 mg (NOW x1)Idania Olsen R.N. Name Value Range Interpretation Code Description Data Jada rce(s) Supporting Document(s) ID Date Data Source [id number] 10/08/2020 11:07:00 AM EDT [facility] 1 General Instructions [facility] Emergency Department [address] [place] [address] Phone #: ext- [phone] 10/08/2020 10:54 Patient: TANIKA DANIEL I Sex: F : 1990 Age: 29yRectal bleed consisting of bright red blood.Hemorrhoids (? internal hemorrhoids).INSTRUCTIONSNo strenuous activity until better.Drink plenty of fluids for the next 48 hours as needed. Avoid alcohol and NSAIDS. NSAIDS includeaspirin, ibuprofen (Advil) and naproxen (Al bonnie). Avoid spicy foods. No alcohol. Do not smoke.Warnings: Further evaluation is necessary in order to conduct further tests and assess the possibility ofserious illness. It is very important to follow up with a healthcare provider.GENERAL WARNINGS: Return or contact your physician immediately if your condition worsens orchanges unexpectedly, if not improving as expected, or if other problems arise. Specifically return if pain,vomiting, bleeding, breathing difficulty or fever.Your Current Medications: Your current home medications have been reviewed.CONTINUE TAKING THE FOLLOWING MEDICATIONS:Preparation H External : suppisotory and cream.Follow-up:Follow up with your healthcare provider in one day even if well. Call for the next available appointment.Reason for referral: evaluation and recommend f/u with general surgery for further evaluation of ? internalhemorrhoids with rectal bleding. Consider colonoscopy due to hx of rectal bleeding.. Summary of careprovided to patient via paper.Understanding of the discharge instructions verbalized by patient. Expected course of illness, dischargeinstructions, activity level, follow-up appointment and risks and benefits of treatment reviewed with patientand understanding verbalized. Agrees to plan of care. ADDITIONAL INFORMATIONLower Gastrointestinal (GI) Bleeding (Stable)You have signs of blood in your stool. This is called rectal bleeding. The bleeding may have begun inanother part of your gastrointestinal (GI) tract. If the blood is bright red, it is likely coming from thelower part of the GI tract. If the blood is black or dark, it might be coming from higher up in the GItract. Very small amounts of GI bleeding may not be visible and can only be discovered during a test 2 General Instructions [facility] Emergency Department [address] [place] [address] Phone #: ext- [phone] 10/08/2020 10:54 Patient: TANIKA DANIEL I Sex: F : 1990 Age: 29yon your stool. Possible causes of lower GI bleeding include: Swollen inflamed veins in the rectum (hemorrhoids) Tear in the lining of the anus (anal fissures) Inflammation of a small pouch in the intestine (diverticulitis) Inflammatory bowel disease (Crohn's disease or ulcerative colitis) Polyps (growths) in the intestine Swelling and irritation of the colon (infectious colitis) Colon cancerNote: Iron supplements and medicines for diarrhea or upset stomach can cause black stools. Foodssuch as licorice and red beets can also discolor the stool and be mistaken for bleeding. These are notbleeding and are not a cause for alarm.Home careYou have not lost a large amount of blood and your condition appears stable at this time. You mayresume normal activity as long as you feel well.Don't take NSAIDs, such as aspirin, ibuprofen, or naproxen. They can irritate the stomach and causefurther bleeding. If you are t aking these medicines for other medical reasons, talk to your healthcareprovider before you stop them.Follow-up careFollow up with your healthcare provider, or as advised. Further tests may be needed to find the causeof your bleeding.When to seek medical adviceCall your healthcare provider right away for any of the following: Large amount of rectal bleeding Increasing abdominal pain Weakness, dizzinessCall 911Call 911 if any of the following occur: 3 General Instructions [facility] Emergency Department [address] [place] [address] Phone #: [phone]- [phone] 10/08/2020 10:54 Patient: TANIKA DANIEL I Sex: F : 1990 Age: 29y Loss of consciousness Vomiting blood 1999- 2019 [employer]. [address] [place] [address]. All rights reserved. This information is not intended as asubstitute for professional medical care. Always follow your healthcare professional's instructions.HemorrhoidsHemorrhoids are swollen and inflamed veins inside the rectum and near the anus. The rectum is thelast several inches of the colon. The anus is the passage between the rectum and the outside of thebody.CausesThe veins can become swollen due to increased pressure in them. This is most often caused by: Chronic constipation or diarrhea Straining when having a bowel movement Sitting too long on the toilet A low-fiber diet PregnancySymptoms Bleeding from the rectum. You may notice this after bowel movements. 4 General Instructions [facility] Emergency Department [address] [place] [address] Phone #: ext- [phone] 10/08/2020 10 :54 Patient: TANIKA DANIEL I Sex: F : 1990 Age: 29y Lump near the anus Itching around the anus Pain around the anus Mucus leaks from the anusThere are different types of hemorrhoids. Depending on the type you have and the severity, you maybe able to treat yourself at home. In some cases, a procedure may be the best treatment option. Yourhealthcare provider can tell you more about this, if needed.Home careGeneral care To get relief from pain or itching, try: o Medicines. Your healthcare provider may recommend stool softeners, suppositories, or laxatives to help manage constipation. Use these exactly as directed. o Sitz baths. A sitz bath involves sitting in a few inches of warm bath water. Be careful not to make the water so hot that you burn yourself--test it before sitting in it. Soak for about 10 to 15 minutes a few times a day. This may help relieve pain. o Topical products. Your healthcare provider may prescribe or recommend creams, ointments, or pads that can be applied to the hemorrhoid. Use these exactly as directed.Tips to help prevent hemorrhoids Eat more fiber. Fiber adds bulk to stool and absorbs water as it moves through your colon. This makes stool softer and easier to pass. o Increase the fiber in your diet with more fiber-rich foods. These include fresh fruit, vege tables, and whole grains. o Take a fiber supplement or bulking agent, if advised by your healthcare provider. These include products such as psyllium or methylcellulose. Drink more water. Your healthcare provider may direct you to drink plenty of water. This can help keep stool soft. Be more active. Frequent exercise aids digestion and helps prevent constipation. It may also help make bowel movements more regular. Don't strain during bowel movements. This can make hemorrhoids more likely. Also, don't sit on the toilet for long periods of time. 5 General Instructions [facility] Emergency Department [address] [place] [address] Phone #: ext- [phone] 10/08/2020 10:54 Patient: TANIKA DANIEL I Sex: F : 1990 Age: 29yFollow-up careFollow up with your healthcare provider as advised. If a culture or imaging tests were done, someonewill let you know the results when they are ready. This may take a few days or longer. If yourhealthcare provider recommends a procedure for your hemorrhoids, these options can be discussed.Options may include surgery and outpatient office treatments.When to seek medical adviceCall your healthcare provider right away if any of these occur: Increased bleeding from the rectum Increased pain around the rectum or anus Weakness or dizzinessCall 911Call 911 if any of these occur: Trouble breathing or swallowing Fainting or loss of consciousness Unusually fast heart rate Vomiting blood Large amounts of blood in stool or black, tarry stools [employer]. [address] [place] [address]. All rights reserved. This information is not intended as asubstitute for professional medical care. Always follow your healthcare professional's instructions.Hemorrhoids 6 General Instructions [facility] Emergency Department [address] [place] [address] Phone #: ext- [phone] 10/08/2020 10:54 Patient: TANIKA DANIEL I Sex: F : 1990 Age: 29yHemorrhoids are swollen and inflamed veins inside the rectum and near the anus. The rectum is thelast several inches of the colon. The anus is the passage between the rectum and the outside of thebody.CausesThe veins can become swollen due to increased pressure in them. This is most often caused by: Chronic constipation or diarrhea Straining when having a bowel movement Sitting too long on the toilet A low-fiber diet PregnancySymptoms Bleeding from the rectum. You may notice this after bowel movements. Lump near the anus Itching around the anus Pain around the anus Mucus leaks from the anusThere are different types of hemorrhoids. Depending on the type you have and the severity, you maybe able to treat yourself at home. In some cases, a procedure may be the best treatment option. Your 7 General Instructions [facility] Emergency Department [address] [place] [address] Phone #: ext- [phone] 10/08/2020 10:54 Patient: TANIKA DANIEL I Sex: F : 1990 Age: 29yhealthcare provider can tell you more about this, if needed.Home careGeneral care To get relief from pain or itching, try: o Medicines. Your healthcare provider may recommend stool softeners, suppositories, or laxatives to help manage constipation. Use these exactly as directed. o Sitz baths. A sitz bath involves sitting in a few inches of warm bath water. Be careful not to make the water so hot that you burn yourself--test it before sitting in it. Soak for about 10 to 15 minutes a few times a day. This may help relieve pain. o Topical products. Your healthcare provider may prescribe or recommend creams, ointments, or pads that can be applied to the hemorrhoid. Use these exactly as directed.Tips to help prevent hemorrhoids Eat more fiber. Fiber adds bulk to stool and absorbs water as it moves through your colon. This makes stool softer and easier to pass. o Increase the fiber in your diet with more fiber-rich foods. These include fresh fruit, vegetables, and whole grains. o Take a fiber supplement or bulking agent, if advised by your healthcare provider. These include products such as psyllium or methylcellulose. Drink more water. Your healthcare provider may direct you to drink plenty of water. This can help keep stool soft. Be more active. Frequent exercise aids digestion and helps prevent constipation. It may also help make bowel movements more regular. Don't strain during bowel movements. This can make hemorrhoids more likely. Also, don't sit on the toilet for long periods of time.Follow-up careFollow up with your healthcare provider as advised. If a culture or imaging tests were done, someonewill let you know the results when they are ready. This may take a few days or longer. If yourhealthcare provider recommends a procedure for your hemorrhoids, these options can be discussed.Options may include surgery and outpatient office treatments.When to seek medical advice 8 General Instructions [facility] Emergency Department [address] [place] [address] Phone #: ext- [phone] 10/08/2020 10:54 Patient: TANIKA DANIEL I Sex: F : 1990 Age: 29yCall your healthcare provider right away if any of these occur: Increased bleeding from the rectum Increased pain around the rectum or anus Weakness or dizzinessCall 911Call 911 if any of these occ ur: Trouble breathing or swallowing Fainting or loss of consciousness Unusually fast heart rate Vomiting blood Large amounts of blood in stool or black, tarry stools [phone] [employer]. [address] [place] [address]. All rights reserved. This information is not intended as asubstitute for professional medical care. Always follow your healthcare professional's instructions.Lower Gastrointestinal (GI) Bleeding (Stable)You have signs of blood in your stool. This is called rectal bleeding. The bleeding may have begun inanother part of your gastrointestinal (GI) tract. If the blood is bright red, it is likely coming from thelower part of the GI tract. If the blood is black or dark, it might be coming from higher up in the GItract. Very small amounts of GI bleeding may not be visible and can only be discovered during a teston your stool. Possible causes of lower GI bleeding include: Swollen inflamed veins in the rectum (hemorrhoids) Tear in the lining of the anus (anal fissures) Inflammation of a small pouch in the intestine (diverticulitis) Inflammatory bowel disease (Crohn's disease or ulcerative colitis) Polyps (growths) in the intestine Swelling and irritation of the colon (infectious colitis) Colon cancerNote: Iron supplements and medicines for diarrhea or upset stomach can cause black stools. Foodssuch as licorice and red beets can also discolor the stool and be mistaken for bleeding. These are not 9 General Instructions [facility] Emergency Department [address] [place] [address] Phone #: ext- [phone] 10/08/2020 10:54 Patient: TANIKA DANIEL I Sex: F : 1990 Age: 29ybleeding and are not a cause for alarm.Home ca reYou have not lost a large amount of blood and your condition appears stable at this time. You mayresume normal activity as long as you feel well.Don't take NSAIDs, such as aspirin, ibuprofen, or naproxen. They can irritate the stomach and causefurther bleeding. If you are taking these medicines for other medical reasons, talk to your healthcareprovider before you stop them.Follow-up careFollow up with your healthcare provider, or as advised. Further tests may be needed to find the causeof your bleeding.When to seek medical adviceCall your healthcare provider right away for any of the following: Large amount of rectal bleeding Increasing abdominal pain Weakness, dizzinessCall 911Call 911 if any of the following occur: Loss of consciousness Vomiting blood [phone] [employer] [place] [address]. All rights reserved. This information is not intended as asubstitute for professional medical care. Always follow your healthcare prof essional's instructions. You have been given the following additional information: Lower GI Bleeding (Stable) Hemorrhoids Hemorrhoids Lower GI Bleeding (Stable) No strenuous activity until better. 10 General Instructions [facility] Emergency Department [address] [place], [place] [address] Phone #: ext- [phone] 10/08/2020 10:54 Patient: TANIKA DANIEL I Sex: F : 1990 Age: 29y(Electronically signed by NAYELI Goodman 10/08/2020 12:36) Name Value Range Interpretation Code Description Data Jada rce(s) Supporting Document(s) ID Date Data Source [id number] 10/08/2020 11:07:00 AM EDT [facility] 1 Clinical Report - Nurses [facility] Emergency Department [address] [place] [address] Phone #: ext- [phone] 10/08/2020 10:54 Patient: TANIKA DANIEL I Sex: F : 1990 Age: 29yTRIAGEArrived by private vehicle. Historian: patient. Accompanied by co-worker.Acuity: LEVEL 4.Chief Complaint: (hemorrhoids).Alert. No acute distress.Onset. (3 - 4 weeks). ( PT has been dealing with hemorrhoids off and on for a few years. For the past 3-4weeks she has been having severe pain and dark blood when she has a BM. She went to [facility] on09/29 and they gave her preparation H and did a rectal exam. She was seen by her [employer] PA yesterday andwas given an emergency referral to Dr. Beach. Today, the pain was worse so she decided to come getevaluated again.).Treatment [employer]:Seen within the last 30 days at another facility in the ED and office; seen for similar symptoms. (preparationh).SEPSIS SCREEN: SIRS SCREEN NEGATIVE. SEPSIS SCREEN NEGATIVE. No suspected or confirmedsigns of infection present.KEVIN COMA SCORE: 15- eyes open- spontaneous (4); best verbal response- oriented (5); bestmotor response- obeys commands (6). --11:08 10/08/20 Idania Olsen R.N.10:58 10/08/20. BP: 133/75. MAP: 94. HR: 75. RR: 18. O2 saturation: 98%. Temp: 97.5 F. Pain level now:01/22. --11:08 10/08/20 Idania Olsen R.N.Weight: 92 kg stated. Height/Length: 72 inches Per Patient. BMI: 27.5. --11:06 10/08/20 Idania Olsen R.N.MedicationsPreparation H External (suppisotory and cream). --11:06 10/08/20 Idania Olsen R.N.AllergiesShellfish-derived Products. --11:06 10/08/20 Idania Olsen R.N.PROBLEMS:Hemorrhoids. --11:07 10/08/20 Idania Olsen R.N.ADDITIONAL SURGERIES:Ankle surgery. 2 Clinical Report - Nurses [facility] Emergency Department [address] [place] [address] Phone #: ext- [phone] 10/08/2020 10:54 Patient: TANIKA DANIEL I Sex: F : 1990 Age: 29y Colonoscopy. --11:07 10/08/20 Idania Olsen R.N. History PAST MEDICAL HX: Immunizations: up-to-date. Last normal menstrual period- September 14. Denies current . SOCIAL HX: Light tobacco smoker (cigarette)- less than 1/2 a pack per day. No alcohol use or drug use. No recent travel. No known contact with a sick individual. The patient was offered HIV testing but declined and hepatitis C testing but declined. The patient has not traveled outside the [place] Infectious disease exposure: The patient was not exposed to C-diff, MRSA, VRE, CRE or Coronavirus. SELF HARM ASSESSMENT: Self harm assessment was performed. The patient answered "no" to the question(s) "Have you recently felt down, depressed, or hopeless?", "Do you have thoughts of harming or killing yourself?", "Do you have a plan for harming or killing yourself?", "Have you recently had thoughts about harming or killing others?", "Do you have any dangerous items in your possession?", "Have you noticed less interest or pleasure in doing things?", "Are you here because you tried to hurt yourself?" and "Have you ever tried to hurt yourself before today?". ABUSE ASSESSMENT: No report of abuse. NUTRITIONAL RISK ASSESSMENT: The nutritional risk assessment revealed no deficiencies. FUNCTIONAL ASSESSMENT: Functional assessment: no impairments noted. LEARNING NEEDS ASSESSMENT: The learning needs assessment revealed no barriers. FALL RISK ASSESSMENT: Fall risk assessment completed. No risk factors identified. SKIN INTEGRITY ASSESSMENT: Skin integrity risk assessment completed. No skin integrity risk identified. --11:08 10/08/20 Idania Olsen R.N. Interventions Identification band on patient. To treatment room. --11:08 10/08/20 Idania Olsen R.N.PHYSICAL ASSESSMENTAmbulatory to room.GENERAL / NEURO / PSYCH: Alert. Oriented X 4. Appears in pain.HEENT: Mucous membranes are pink.RESPIRATORY: Respirations not labored. Breath sounds within normal limits.CVS: Capillary refill less than 2 seconds.GI / : Abdomen soft an d nontender. Bowel sounds within normal limits. No blood in the stool. ( noexternal hemorrhoids, but pt reports pain and internal hemorrhoids).SKIN: Skin is warm and dry. --11:37 10/08/20 Idania Olsen R.N.NURSING PROGRESS NOTES 3 Clinical Report - Nurses [facility] Emergency Department [address] [place] [address] Phone #: ext- [phone] 10/08/2020 10:54 [id number] Sex[facility] F : 1990 Age: 29y Patient gowned. Reassurance given. Two patient identifiers checked. Call light placed in reach. Patient ready for evaluation- PA notified. --11:08 10/08/20 Idania Olsen R.N. 11:30 10/08/20. Planning Coordinator provided for the rectal exam by the physician (Planning Coordinator with Ron TYLER). --12:20 10/08/20 Idania Olsen R.N. 11:36 10/08/2020 Acetaminophen PO Tablets 1000 mg given. Allergies verified and confirmed 5 rights. Information reviewed with patient including reason for taking this medication. Verbalizes understanding. --11:36 10/08/20 Idania Olsen R.N. 12:00 10/08/20. The patient is calm and resting quietly. Patient waiting for lab results. --12:20 10/08/20 Idania Olsen R.N.DISPOSITION / DISCHARGE 12:12 10/08/20. BP: 131/78. MAP: 95. HR: 74. RR: 18. O2 saturation: 99%. Temp: 97.9 F. --12:13 10/08/[address] [facility] Tech, [facility], Tech1 Condition at departure: stable. No learning barriers present. Discharge instructions provided and reviewed with the patient. Treatments reviewed (sitz bath). Reviewed referral to a surgeon. Work note given. Patient verbalized understanding. Written instructions provided in [place]. The patient was discharged by the physician first assistant manager. She was discharged home and accompanied by dial mounter. She left ambulatory and via private vehicle. Child And Adolescent Psychologist driving. --12:20 10/08/20 Idania Olsen R.N. 12:21 10/08/20. Pain level now: 5/10. --12:21 10/08/20 Idania Olsen R.N.Locked/Released at 10/08/2020 12:21 by Idania Olsen R.N. Name Value Range Interpretation Code Description Data Jada rce(s) Supporting Document(s) ID Date Data Source [id number] 10/08/2020 11:07:00 AM EDT [facility] 1 Clinical Report - Physicians/Mid Levels [facility] Emergency Department [address] [place] [address] Phone #: ext- [phone] 10/08/2020 10:54 Patient: TANIKA DANIEL I Sex: F : 1990 Age: 29y Time Seen: 11:08 10/08/2020. Arrived- By private vehicle. Historian- patient. Disposition decision: 12:11 10/08/2020.HISTORY OF PRESENT ILLNESS Chief Complaint: RECTAL BLEEDING and PAIN and HEMORRHOIDS. This started about 1 weeks ago and has been moderate. (Pt states she has prior hx of both external and internal hemorrhoids, about 1 week ago started to have "rectal pain" and blood on TP after bowel movements. Think she has had recurrence of internal hemorrhoids. States she had colonoscopy several years ago and was told she had internal hemorrhoids. Seen on post yesterday and given referral to Dr Quiana obrien surg for eval but hasn't made appt yet. No fever, NVD, or abdominal pain.). The patient has had rectal bleeding and pain but not had dark stools or hard stools. No constipation, nausea, vomiting, diarrhea or abdominal pain. No recent travel. No known contact with a sick individual. Similar symptoms previously. Patient has had similar symptoms several times. Recent medical care: The patient was seen recently at another facility in a clinic.REVIEW OF SYSTEMSLast normal menstrual period- 14 September 2020. No dizziness, fainting episodes, weakness, abnormalbleeding or vaginal discharge. No fever, blurred vision, sore throat, epistaxis or cough. No difficultybreathing, chest pain, hematuria, skin rash or enlarged lymph nodes. No chills or joint pain. Nocomplaint of rectal foreign body. The patient has had no rectal intercourse.P AST HISTORYSee nurses notes. Problems: Hemorrhoids. Additional Surgeries: Ankle surgery. Colonoscopy. Medications: Preparation H External (suppisotory and cream). Allergies: Shellfish-derived Products.SOCIAL HISTORYLight tobacco smoker. No alcohol use or drug use. No recent travel. 2 Clinical Report - Physicians/Mid Levels [facility] Emergency Department [address] [place] [address] Phone #: ips- [phone] 10/08/2020 10:54 Patient: TANIKA DANIEL I Sex: F : 1990 Age: 29yADDITIONAL NOTESThe nursing notes have been reviewed with agreement regarding the chief complaint, HPI, ROS, PMH andpatient medications and allergies.PHYSICAL EXAMVital Signs: 10/08/2020 10:58 BP: 133/75. MAP: 94. HR: 75. RR: 18. O2 saturation: 98%. Temp: 97.5 F.Pain level now: 7/10. Have been reviewed as normal and appear to be correct. Blood pressure normal.Me an arterial pressure- normal. Heart rate normal. Respiratory rate normal. Temperature normal.Oxygen saturation normal.Appearance: Alert. Oriented X3. No acute distress.Eyes: Pupils equal, round and reactive to light. Eyes normal inspection.ENT: Ears normal. Nose normal. Pharynx normal.Neck: Normal inspection. Neck supple.CVS: Normal heart rate and rhythm. Heart sounds normal. Pulses normal.Respiratory: No respiratory distress. Painless inspiration. Breath sounds normal.Abdomen: Soft and nontender. Bowel sounds normal. No organomegaly. No mass.Back: Normal inspection.Rectal: Rectal exam normal and no ntender. Stool color normal. No hemorrhoids. No externalhemorrhoids.Skin: Skin warm and dry. Normal skin color. No rash. Normal skin turgor.Extremities: Extremities exhibit normal ROM. No lower extremity edema.Neuro: Oriented X 3. No motor deficit. No sensory deficit. Reflexes normal.LABS, X-RAYS, AND EKGLaboratory Tests: Laboratory tests have been ordered, with results reviewed and considered in themedical decision making process. CBC w Diff: (ISHAN: 10/08/2020 11:29) ( MsgRcvd 10/08/2020 11:53) Final results Test Result Flag Units (Reference) CBC W/AUTOMATED DIFF COMPLETE BLOOD COUNT WBC 7.7 10/uL (4.2 - 11.0) RBC 5.05 10/uL (4.20 - 5.40) HEMOGLOBIN 14.9 g/dL (12.0 - 16.0) HEMATOCRIT 44.0 % (37.0 - 47.0) MCV 87.1 fL (81.0 - 101) MCH 29.5 pg (27.0 - 34.0) MCHC 33.9 g/dL (31.0 - 36.0) RDW 13.0 % (11.5 - 14.5) PLATELETS 359 10/uL (150 - 450) MPV 9.9 fL (7.4 - 10.4) NEUT 69.6 % (37.0 - 80.0) LYMPH 18.0 L % (25.0 - 40.0) MONO 10.3 H % (3.0 - 8.0) EOS 1.6 % (0.0 - 7.0) BASO 0.4 % (0.0 - 2.5) %IG 0.1 H % (0.0 - 0.0) %NRBC 0.0 % (0.0 - 0.0) #NEUT 5.34 10/uL (2.00 - 6.90) 3 Clinical Report - Physicians/Mid Levels [facility] Emergency Department [address] [place] [address] Phone #: ext- [phone] 10/08/2020 10:54 Patient: TANIKA DANIEL I Sex: F : 1990 Age: 29y #LYMPH 1.38 10/uL (0.60 - 3.40) #MONO 0.79 10/uL (0.00 - 0.90) #EOS 0.12 10/uL (0.00 - 0.70) #BASO 0.03 10/uL (0.00 - 0.20) #IG 0.01 10/uL (0.00 - 0.10) #NRBC 0.00 10/uL (0.00 - 0.00) MANUAL DIFF NOT INDICATED RBC MORPH NOT INDICATEDCMP: (ISHAN: 10/08/2020 11:29) ( MsgRcvd 10/08/2020 11:58) Final results Test Result Flag Units (Reference) COMPREHENSIVE METABOLIC PANEL COMPREHENSIVE METABOLIC PANEL SODIUM 134 mEq/L (134 - 153) POTASSIUM 4.3 mEq/L (3.6 - 5.0) CHLORIDE 99 mEq/L (98 - 107) CO2 18 L MEQ/L (22 - 30) GLUCOSE 77 MG/DL (70 - 99) BUN 8 MG/DL (7 - 21) CREATININE 0.7 MG/DL (0.7 - 1.5) BUN/CREAT 11 (8 - 27) TOTAL PROTEIN 8.8 H G/DL (6.3 - 8.2) ALBUMIN 4.7 G/DL (3.9 - 5.0) GLOBULIN 4.1 H GM/DL (2.4 - 3.2) A/G RATIO 1.1 (0.8 - 2.0) CALCIUM 10.0 MG/DL (8.4 - 10.2) TOTAL BILI 0.7 MG/DL (0.2 - 1.3) ALKALINE PHOS 86 U/L (38 - 126) SGOT/AST 33 U/L (5 - 40) SGPT/ALT 41 U/L (7 - 56) ANION GAP 17.0 H mmol/L (8.0 - 16.0) AGE 29 yrs NON-AA GFR >60 mL/min AFR AMER GFR >60 mL/min Male GFR Interprentation 20-49 yrs >60 mL/min [id number] yrs >56 mL/min Normal 60-69 yrs >49 mL/min Normal 70-79yrs>42 mL/min Normal 80 and above >35 mL/min Normal Female GFRInterpretation 20-39 yrs >60 mL/min Normal 40-49 yrs >58 mL/minNormal 50-59 yrs >51 mL/min Normal 60-69 yrs >45 mL/min Edfbfe67-15 yrs >39 mL/min Normal 80 and above >32 mL/min NormalUrinalysis: (ISHAN: 10/08/2020 11:30) ( MsgRcvd 10/08/2020 11:59) Final results Test Result Flag Units (Reference) URINALYSIS URINALYSIS SOURCE R COLOR yellow (NORMAL: Yello CLARITY clear (NORMAL: Clear SPEC GRAVITY 1.030 (1.001 - 1.030 pH 5 (5 - 9) GLUCOSE NORM (NORMAL: Negat BILIRUBIN NEG (NORMAL: Negat KETONE 150 A (NORMAL: Negat PROTEIN 30 (NORMAL: Negat NITRITE NEG (NORMAL: Negat BLOOD 50 A (NORMAL: Negat LEUK EST NEG (NORMAL: Negat 4 Clinical Report - Physicians/Mid Levels [facility] Emergency Department [address] [place] [address] Phone #: [phone] 10/08/2020 10:54 Patient: TANIKA DANIEL I Sex: F : 1990 Age: 29y UROBILINOGEN 1 (less than 1.0 MICROSCOPIC See Below WBC 0 - 1 (NORMAL: NONE RBC 1 - 3 (NORMAL: NONE EPITHELIAL FEW (NORMAL: NONE BACTERIA Trace (NORMAL: NONE CASTS See Below HYALINE CAST 3-5 A (NORMAL: None Occult Blood Stool Diagnostic 1 slide: (ISHAN: 10/08/2020 11:20) ( MsgRcvd 10/08/2020 11:40) Final results Test Result Flag Units (Reference) OCCULT BLOOD NEGATIVE (NORMAL: NEGAT OCCULT BLOOD REENTER NEGATIVE (NORMAL: NEGAT { HEMOCCULT LOT # [id number] 1L ){ LOT EXP DATE 12.04 ){ PROCEDURAL CONTROL POS/NEG VALID ).PROGRESS AND PROCEDURESDisposition: Discharged home in good and improved condition.Discharge decision based on the following: patient's condition is improved; patient is ambulatory; patient isactive; patient's exam is stable; minimally abnormal test results; stable condition on repeat evaluation;social support is adequate; transportation is available; follow-up is available; clinical impression isconsistent with outpatient treatment.CLINICAL IMPRESSION Rectal bleed consisting of bright red blood. Hemorrhoids (? internal hemorrhoids).INSTRUCTIONS No strenuous activity until better. Drink plenty of fluids for the next 48 hours as needed. Avoid alcohol and NSAIDS. NSAIDS include aspirin, ibuprofen (Advil) and naproxen (Aleve). Avoid spicy foods. No alcohol. Do not smoke. Warnings: Further evaluation is necessary in order to conduct further tests and assess the possibility of serious illness. It is very important to follow up with a healthcare provider. GENERAL WARNINGS: Return or contact your physician immediately if your condition worsens or changes unexpectedly, if not improving as expected, or if other problems arise. Specifically return if pain, vomiting, bleeding, breathing difficulty or fever. Your Current Medications: Your current home medications have been reviewed. CONTINUE TAKING THE FOLLOWING MEDICATIONS: 5 Clinical Report - Physicians/Mid Levels [facility] Emergency Department [address] [place] [address] Phone #: ext- [phone] 10/08/2020 10:54 Patient: TANIKA DANIEL I Sex: F : 1990 Age: 29y Preparation H External : suppisotory and cream. Follow-up: Follow up with your healthcare provider in one day even if well. Call for the n ext available appointment. Reason for referral: evaluation and recommend f/u with general surgery for further evaluation of ? internal hemorrhoids with rectal bleding. Consider colonoscopy due to hx of rectal bleeding.. Summary of care provided to patient via paper. Understanding of the discharge instructions verbalized by patient. Expected course of illness, discharge instructions, activity level, follow-up appointment and risks and benefits of treatment reviewed with patient and understanding verbalized. Agrees to plan of care.(Electronically signed by NAYELI Goodman 10/08/2020 12:36) Name Value Range Interpretation Code Description Data Jada rce(s) Supporting Document(s) ID Date Data Source [id number] 10/08/2020 11:58:00 AM EDT [facility] Name Value Range Interpretation Code Description Data Jada rce(s) Supporting Document(s) [facility] yellow NORMAL: Yellow [facility] CLARITY clear NORMAL: Clear [facility] Specific gravity of Urine by Test strip 1.030 1.001 - 1.030 [facility] pH 5 5 - 9 [facility] Glucose [Mass/volume] in Urine by Test strip NORM NORMAL: Negat [facility] Bilirubin.total [Presence] in Urine by Test strip NEG NORMAL: Negative [facility] Ketones [Presence] in Urine by Test strip 150 NORMAL: Negative [facility] Protein [Mass/volume] in Urine by Test strip 30 NORMAL: Negat [facility] Nitrite [Presence] in Urine by Test strip NEG NORMAL: Negative [facility] BLOOD 50 NORMAL: Negative [facility] Leukocyte esterase [Presence] in Urine by Test strip NEG BON L: Negative [facility] Urobilinogen [Mass/volume] in Urine by Test strip 1 less michael n 1.0 mg/dL [facility] MICROSCOPIC See Below [facility] ital WBC 0 - [address]: [address] [facility] Erythrocytes [#/volume] in Urine by Test strip 1 - 3 NORMAL: NON E SEEN [facility] EPITHELIAL FEW NORMAL: NONE SEEN [facility] Bacteria [Presence] in Urine sediment by Light microscopy Tr jayden NORMAL: NONE SEEN [facility] Casts [#/area] in Urine sediment by Microscopy low power field See Be low [facility] Hyaline casts [#/area] in Urine sediment by Microscopy low p ower field 3-5 NORMAL: None Seen [facility] ID Date Data Source [id number] 10/08/2020 11:58:00 AM EDT [facility] Name Value Range Interpretation Code Description Data Jada rce(s) Supporting Document(s) COMPREHENSIVE METABOLIC PANEL [facility] COMPREHENSIVE METABOLIC PANEL Sodium [Moles/volume] in Serum or Plasma 134 mEq/L 134 - 153 [facility] Potassium [Moles/volume] in Serum or Plasma 4.3 mEq/L 3.6 - 5.0 [facility] Chloride [Moles/volume] in Serum or Plasma 99 mEq/L 98 - 107 [facility] Carbon dioxide, total [Moles/volume] in Serum or Plasma 18 MEQ/L 22 - 30 L [facility] Glucose [Mass/volume] in Serum or Plasma 77 MG/DL 70 - 99 [facility] BUN 8 MG/DL 7 - 21 [facility] Creatinine [Mass/volume] in Serum or Plasma 0.7 MG/DL 0.7 - 1.5 [facility] BUN/CREAT 11 8 - 27 [facility] Protein [Mass/volume] in Serum or Plasma 8.8 G/DL 6.3 - 8.2 H [facility] Albumin [Mass/volume] in Serum or Plasma 4.7 G/DL 3.9 - 5.0 [facility] Globulin [Mass/volume] in Serum by calculation 4.1 GM/DL 2.4 - 3.2 H [facility] A/G RATIO 1.1 0.8 - 2.0 [facility] Calcium [Mass/volume] in Serum or Plasma 10.0 MG/DL 8.4 - 10.2 [facility] Bilirubin.total [Mass/volume] in Serum or Plasma 0.7 MG/DL 0.2 - 1.3 [facility] Alkaline phosphatase [Enzymatic activity/volume] in Serum or Plasma 86 U/L 38 - 126 [facility] Aspartate aminotransferase [Enzymatic activity/volume] in Serum or Plasma 33 U/L 5 - 40 [facility] Alanine aminotransferase [Enzymatic activity/volume] in Seru m or Plasma 41 U/L 7 - 56 [facility] Anion gap 3 in Serum or Plasma 17.0 mmol/L 8.0 - 16.0 H [facility] AGE 29 yrs [facility] NON-AA GFR >60 mL/min [facility] AFR AMER GFR >60 mL/min [facility] Male GFR In terprentation 20-49 yrs >60 mL/min Normal 50-59 yrs >56 mL/min Normal 60-69 yrs >49 mL/min Normal 70-79yrs >42 mL/min Normal 80 and above >35 mL/min Normal Female GFR Interpretation 20-39 yrs >60 mL/min Normal 40-49 yrs >58 mL/min Normal 50-59 yrs >51 mL/min Normal 60-69 yrs >45 mL/min Normal 70-79 yrs >39 mL/min Normal 80 and above >32 mL/min Normal ID Date Data Source [id number] 10/08/2020 11:52:00 AM EDT [facility] Name Value Range Interpretation Code Description Data Jada rce(s) Supporting Document(s) CBC W/AUTOMATED DIFF [facility] COMPLETE BLOOD COUNT Leukocytes [#/volume] in Blood by Automated count 7.7 10^3/uL 4.2 - 1 1.0 [facility] Erythrocytes [#/volume] in Blood by Automated count 5.05 10^6/uL 4. 20 - 5.40 [facility] Hemoglobin [Mass/volume] in Blood 14.9 g/dL 12.0 - 16.0 [facility] Hematocrit [Volume Fraction] of Blood by Automated count 44.0 % 3 7.0 - 47.0 [facility] Erythrocyte mean corpuscular volume [Entitic volume] by Auto mated count 87.1 fL 81.0 - 101 [facility] Erythrocyte mean corpuscular hemoglobin [Entitic mass] by Automated count 29.5 pg 27.0 - 34.0 [facility] Erythrocyte mean corpuscular hemoglobin concentration [Mass/volume] by Automated count 33.9 g/dL 31.0 - 36.0 [facility] Erythrocyte distribution width [Ratio] by Automated count 13.0 % 11.5 - 14.5 [facility] Platelets [#/volume] in Blood by Automated count 359 10^3/uL 150 - 45 0 [facility] Platelet mean volume [Entitic volume] in Blood by Automated count 9.9 fL 7.4 - 10.4 [facility] Neutrophils/100 leukocytes in Blood by Automated count 69.6 % 37. 0 - 80.0 [facility] Lymphocytes/100 leukocytes in Blood by Manual count 18.0 % 25.0 - 40.0 L [facility] Monocytes/100 leukocytes in Blood by Automated count 10.3 % 3.0 - 8.0 H [facility] Eosinophils/100 leukocytes in Blood by Automated count 1.6 % 0.0 - 7.0 [facility] Basophils/100 leukocytes in Blood by Automated count 0.4 % 0.0 - 2.5 [facility] %IG 0.1 % 0.0 - 0.0 H [facility] %NRBC 0.0 % 0.0 - 0.0 [facility] al Neutrophils [#/volume] in Blood by Automated count 5.34 10^3/uL 2.00 - 6.90 [facility] Lymphocytes [#/volume] in Blood by Automated count 1.38 10^3/uL 0.60 - 3.40 [facility] Monocytes [#/volume] in Blood by Automated count 0.79 10^3/uL 0.00 - 0.90 [facility] Eosinophils [#/volume] in Blood by Automated count 0.12 10^3/uL 0.00 - 0.70 [facility] Basophils [#/volume] in Blood by Automated count 0.03 10^3/uL 0.00 - 0.20 [facility] #IG 0.01 10^3/uL 0.00 - 0.10 [facility]ital #NRBC 0.00 10^3/uL 0.00 - 0.00 [facility] MANUAL DIFF NOT INDICATED [facility] RBC MORPH NOT INDICATED [facility] ID Date Data Source [id number] 10/08/2020 11:39:00 AM EDT [facility] Name Value Range Interpretation Code Description Data Jada rce(s) Supporting Document(s) OCCULT BLOOD NEGATIVE NORMAL: NEGATIVE [facility] OCCULT BLOOD REENTER NEGATIVE NORMAL: NEGATIVE [facility] { HEMOCCULT LOT # [id number] [id number] ){ LOT EXP DATE 12.04 ){ PROCEDURAL CONTROL POS/NEG VALID ) Procedure Social History No Information Vital Signs ID Date Data Source UNK Name Value Range Interpretation Code Description Data Source(s) Systolic blood pressure 178 mm[Hg] 178 mm[Hg] M [facility] ([facility]) Diastolic blood pressure 92 mm[Hg] 92 mm[Hg] [facility] ([facility]) Heart rate 89 /min 89 /min [facility] ([facility]) Body temperature 98.7 [degF] 98.7 [degF] [facility] ([facility]) Respiratory rate 20 /min 20 /min [facility] ( [facility]) Oxygen saturation in Arterial blood by Pulse oximetry 97 % 97 % [facility] ([facility]) Body weight 207.00 [lb_av] 207.00 [lb_av] MEDEN T ([facility]) Body weight 93.895 kg 93.[address] [facility] ([facility]) Body height 71 [in_i] 71 [in_i] [facility] ([facility]) 5'11" Body mass index (BMI) [Ratio] 28.9 kg/m2 28.9 k g/m2 [facility] ([facility]) Body surface area Derived from formula 2.14 m2 2.[address] [facility] ([facility]) ID Date Data Source [id number] 10/26/2020 10:26:38 AM EDT [facility] Name Value Range Interpretation Code Description Data Source(s) WEIGHT RECORDED 205.80 pounds 205.80 pounds [facility] Height 71 Inches 071 Inches [facility]
[2021-06-20 18:14] LABS: RSV AMPLIFICATION NEGATIVE (NEGATIVE)
[2021-06-21] MEDS ORDERED: ALLE24TA7 PO (00:26)
[2021-06-21] MEDS ORDERED: SERT25TA21 PO (00:26)
[2021-06-21] MEDS ORDERED: SERTRALINE HCL 25 MG TABLET PO SCH (09:00)
[2021-06-21] MEDS ORDERED: SERT50TA29 PO (09:19)
[2021-06-21] MEDS ORDERED: HOME MED LIST COMPLETE! XX SCH (09:20)
[2021-06-21] MEDS ORDERED: MOM 30ML SUSPENSION UDC PO PRN (18:10)
[2021-06-21] MEDS ORDERED: ACETAMINOPHEN TAB 650MG DOSE (2X325MG) PO PRN (18:10)
[2021-06-21] MEDS ORDERED: MAALOX 30 ML SUSP *UDC PO PRN (18:10)
--- OUTSIDE RECORDS SUMMARY | 2021-06-21 18:25 | CCD ---
Author Author [facility] Organization [facility] Address Unknown Phone Unavailable Care Team Providers Care Cardio Clinician Name Role Phone Maxx LEYVA MD Unavailable [...] C CHACORTA MD Unavailable Unavailable ZULICK, C HCACORTA MD Unavailable Unavailable ZULICK, C CHACORTA MD Unavailable Unavailable [facility] Unavailable Unavailable CHANLIECCO, C ADI MD Unavailable [...] is protected by Article 27-F of the [facility] Public Health law. If you continue you may have access to information: Regarding HIV / AIDS; Provided by facilities licensed or operated by the [facility] Office of Mental Health; or Provided by the [facility] Office for People With Developmental Disabilities. If such information is present, then the following [facility] mandated warning applies: This information has been [...] law may result in a fine or [place] health care facility sentence or both. A general authorization for the release of medical or other information is NOT sufficient authorization for further disc losure. Allergies and Adverse Reactions Type Description Substance Reaction Status Data Source(s ) No Known Drug Allergies No Known Drug Allergies [facility] Propensity to adverse reactions TREES AND DOGS TREES AND DOGS [facility] Propensity to adverse reactions shellfish shellfish [facility] Hospital Encounters Encounter Providers Location Date Indications Data Source(s ) Outpatient Attender: CHACORTA LEYVA MDAtt darinel: ANTHONY ZAVALAConsultant: [facility] 10/20/2020 07:05:00 PM EDT - 10/21/2020 06:15:00 PM EDT [facility] Patient discharged. Outpatient Attender: CHACORTA LEYVA MD Family Practice 10/20/2020 0 2:00:00 PM EDT [facility] ([facility]) Outpatient Attender: CHACORTA LEYVA MD 2020 11:16:36 AM EDT - 10/20/2020 03:13:00 PM EDT [facility] Patient discharged. Outpatient Attender: CHACORTA LEYVA MD 2020 10:53:43 AM EDT - 11/07/2020 01:22:00 PM EDT [facility] Patient discharged. Outpatient Attender: CHACORTA LEYVA MDConsultant: [facility] 10/20/2020 09:32:00 AM EDT - 10/20/2020 09:32:00 AM EDT [facility] Emergency Attender: ADI TAPIA MDConsultant: [facility] 10/08/2020 11:07:00 AM EDT - 10/08/2020 12:21:00 PM EDT [facility] Patient discharged. Immunizations Vaccine Date Status Description Data Source(s) COVID-19 VACCINE Pfizer 08/23/2020 12:00:00 AM EST completed [facility] Vaccine Series Complete: NOThis Data was Submitted to [facility] Via [employer]. Medications Medication Brand Name Start Date Product Form Dose Route Admi nistrative Instructions Pharmacy Instructions Status Indications Reaction Description Data Source(s) tramadol hydrochloride 50 MG Oral Tablet Tramadol HCL 10/20/2020 12:00:00 AM EDT active [facility] ([facility]) Insurance Providers Payer name Policy type / Coverage type Policy ID Covered republican ID Covered republican's relationship to dias Policy Dias Plan Information [facility] [id number] SP [id number] [facility] - O/P [id number] 18 [id number] [facility] [place] [id number] 18 [id number] [facility] - PHYSICIAN [id number] 18 [id number] [facility] [id number] SP [id number] Problems, Conditions, and Diagnoses Code Display Name Description Problem Type Effective Dates Data Source(s) R99 Ill-defined and unknown cause of mortali ty Ill-defined and unknown cause of mortality Diagnosis 11/07/2020 01:22:00 PM EDT [facility] 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 Diagnosis 10/20/2020 07:05:00 PM EDT [facility] [id number] Encounter for other preprocedural examin ation Encounter for other preprocedural examination Diagnosis 10/20/2020 02:36:00 PM EDT [facility] Z1152 ENCOUNTER FOR SCREENING FOR COVID-19 ENCOUNTER F OR SCREENING FOR COVID-19 Diagnosis 10/20/2020 09:32:00 AM EDT [facility] [id number] Nicotine dependence, cigarettes, uncompl icated Nicotine dependence, cigarettes, uncomplicated Diagnosis 10/08/2020 11:07:00 AM EDT [facility] K649 Unspecified hemorrhoids Unspecified hemorrhoids Diagno sis 10/08/2020 11:07:00 AM EDT [facility] K625 Hemorrhage of anus and rectum Hemorrhage of anus and r ectum Diagnosis 10/08/2020 11:07:00 AM EDT [facility] Surgeries/Procedures No Information Results ID Date Data Source [id number] 10/20/2020 07:05:00 PM EDT [facility] 1 OrderSheet [facility] Emergency Department [address] [place] [address] Phone #: ext- [phone] 10/20/2020 19:04 Patient: [...] rce(s) Supporting Document(s) ID Date Data Source [id number] 10/20/2020 07:05:00 PM EDT [facility] 1 Medication Reconciliation Report [facility] Emergency Department [address] [place] [address] Phone #: ext- [phone] 10/20/2020 19:04 Patient: [...] rce(s) Supporting Document(s) ID Date Data Source [id number] 10/20/2020 07:05:00 PM EDT [facility] 1 Medication Administration Record [facility] Emergency Department [address] [place] [address] Phone #: ext- [phone] 10/20/2020 19:04 Patient: [...] rce(s) Supporting Document(s) ID Date Data Source [id number] 10/20/2020 07:05:00 PM EDT [facility] 1 General Instructions [facility] Emergency Department [address] [place] [address] Phone #: ext- [phone] 10/20/2020 19:04 Patient: TANIKA DANIEL I Sex: F : 1990 Age: 29yThrombosed external hemorrhoids (with severe intractable rectal pain).(Electronically signed by Anthony Zavala M.D. 10/20/2020 22:50) Name Value Range Interpretation Code Description Data Jada rce(s) Supporting Document(s) ID Date Data Source [id number] 10/20/2020 07:05:00 PM EDT [facility] 1 Clinical Report - Nurses [facility] Emergency Department [address] [place] [address] Phone #: ext- [phone] 10/20/2020 19:04 Patient: TANIKA DANIEL I Sex: F : 1990 Age: 29yTRIAGEArrived by private vehicle. Historian: patient. Accompanied by friend.Triage time: 19:12 10/20/2020. Acuity: LEVEL 4.Chief Complaint: (hemoroid pain).Onset was gradual. (2 months ago). 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 SEPSIS SCREEN NEGATIVE. No suspected or confirmedsigns of infection present. --19:21 10/20/20 Harvinder Ortega RN19:14 10/20/20. BP: 102/53 (regular adult cuff) taken on the left arm, via an automated monitor, whilelying. MAP: 69. HR: 69 (regular, normal rate and strong). RR: 20 (regular, unlabored and normal). [id number]: 98% on room air. Temp: 98.1 F [...] disease exposure. 2 Clinical Report - Nurses [facility] Emergency Department [address] [place] [address] Phone #: ext- [phone] 10/20/2020 19:04 [id number] Sex[facility] F : 1990 Age: 29y SELF [...] reaction and precautions. Verbalizes understanding. --10/20/20 Harvinder Ortega RN 20:00 10/20/2020 Dilaudid (HYDROmorphone HCl) IVP 1 mg given over 2 minute(s) via site #1. Allergies 3 Clinical Report - Nurses [facility] Emergency Department [address] [place] [address] Phone #: ext- [phone] 10/20/2020 19:04 Patient: [...] Ortega RN. 4 Clinical Report - Nurses [facility] Emergency Department [address] [place] [address] Phone #: ext- [phone] 10/20/2020 19:04 Patient: TANIKA DANIEL I Sex: F : 1990 Age: 29yLocked/Released at 10/20/2020 22:05 by Harvinder Ortega RN Name Value Range Interpretation Code Description Data Jada rce(s) Supporting Document(s) ID Date Data Source [id number] 10/20/2020 07:05:00 PM EDT [facility] 1 Clinical Report - Physicians/Mid Levels [facility] Emergency Department [address] [place] [address] Phone #: ext- [phone] 10/20/2020 19:04 Patient: TANIKA DANIEL I Sex: [...] use. 2 Clinical Report - Physicians/Mid Levels [facility] Emergency Department [address] [place] [address] Phone #: ext- [phone] 10/20/2020 19:04 Patient: TANIKA DANIEL I Sex: [...] pain). 3 Clinical Report - Physicians/Mid Levels [facility] Emergency Department [address] [place] [address] Phone #: ext- [phone] 10/20/2020 19:04 Patient: TANIKA DANIEL I Sex: F : 1990 Age: 29y(Electronically signed by Anthony Zavala M.D. 10/20/2020 22:50) Name Value Range Interpretation Code Description Data Jada rce(s) Supporting Document(s) ID Date Data Source [id number] 10/20/2020 10:23:00 AM EDT [facility] Name Value Range Interpretation Code Description Data Jada rce(s) Supporting Document(s) COVID19 Case rprt NOT DETECTED [facility] This lab was ordered by [facility] and reported by [facility]. ID Date Data Source [id number] 10/20/2020 11:15:00 AM EDT [facility] NOT DETECTEDNOT DETECTED{ PROC EDURAL CONTROL VALID [...] rce(s) Supporting Document(s) ID Date Data Source [id number] 10/20/2020 10:55:00 AM EDT [facility] Name Value Range Interpretation Code Description Data Jada rce(s) Supporting Document(s) HCG SERUM QUAL NEGATIVE NORMAL: NEGATIVE [facility] HCG SERUM QL REENTER NEGATIVE NORMAL: NEGATIVE [facility] { KIT LOT # [id number] ){ KIT EXP DATE 04.14.22 ){ PROCEDURAL CONTROL VALID ) ID Date Data Source [id number] 10/08/2020 11:07:00 AM EDT [facility] 1 OrderSheet [facility] Emergency Department [address] [place] [address] Phone #: [phone] ext- [phone] 10/08/2020 10:54 Patient: TANIKA DANIEL I Sex: F : 1990 Age: 29yWEIGHT:92.0 kg (S)ALLERGIES: Shellfish-derived ProductsCHIEF COMPLAINT: rectal bleeding, rectal pain, hemorrhoidsDIAGNOSIS: Rectal hemorrhage, HemorrhoidsLAB ORDERSOrder Description Priority Entered Acknowledged InitialedCBC w Diff STAT 11:16 10/08/2020 11:36 Ron Olsen; Idania MayCMP STAT 11:16 10/08/2020 11:36 Ron Olsen; Idania MayUrinalysis (Clean STAT 11:16 11:33 Adarsh EDCatch) Ron TYLER; Olesya Castillo [id number] Blood Stool 11:16 10/08/2020 11:22 Raúl,Diagnostic 1 [...] rce(s) Supporting Document(s) ID Date Data Source [id number] 10/08/2020 11:07:00 AM EDT [facility] 1 Medication Reconciliation Report [facility] Emergency Department [address] [place] [address] Phone #: ext- [phone] 10/08/2020 10:54 Patient: TANIKA DANIEL I Sex: [...] rce(s) Supporting Document(s) ID Date Data Source [id number] 10/08/2020 11:07:00 AM EDT [facility] 1 Medication Administration Record [facility] Emergency Department [address] [place] [address] Phone #: ext- [phone] 10/08/2020 10:54 Patient: TANIKA DANIEL I Sex: F : 1990 Age: 29yWeight: 92.0 kgHeight/Length: 72 inBMI: 27.5ALLERGIES: Shellfish-derived Products Date/Time Medication Administered Medication OrderedGiven ACETAMINOPHEN [PO] Acetaminophen 1 g PO X1 dose:11:36 10/08/2020 Dose: 1000 mg Tablets PO 1000 mg (NOW x1)Idania Olsen R.N. Name Value Range Interpretation Code Description Data Jada rce(s) Supporting Document(s) ID Date Data Source [id number] 10/08/2020 11:07:00 AM EDT [facility] 1 General Instructions [facility] Emergency Department [address] [place] [address] Phone #: ext- [phone] 10/08/2020 10:54 Patient: TANIKA DANIEL I Sex: [...] discovered during a test 2 General Instructions [facility] Emergency Department [address] [place] [address] Phone #: ext- [phone] 10/08/2020 10:54 Patient: [...] of the following occur: 3 General Instructions [facility] Emergency Department [address] [place] [address] Phone #: myc- [phone] 10/08/2020 10:54 Patient: TANIKA DANIEL I Sex: F : 1990 Age: 29y Loss of consciousness Vomiting blood 1999- 2019 [employer]. [address] [place] [address]. All rights reserved. This information is not [...] this after bowel movements. 4 General Instructions [facility] Emergency Department [address] [place] [address] Phone #: ext- [phone] 10/08/2020 10 :54 [...] long periods of time. 5 General Instructions [facility] Emergency Department [address] [place] [address] Phone #: ext- [phone] 10/08/2020 10:54 Patient: TANIKA DANIEL I Sex: [...] blood in stool or black, tarry stools Proficiency. [address] [place] [address]. All rights reserved. This information is not intended as asubstitute for professional medical care. Always follow your healthcare professional's instructions.Hemorrhoids 6 General Instructions [facility] Emergency Department [address] [place] [address] Phone #: ext- [phone] 10/08/2020 10:54 Patient: [...] best treatment option. Your 7 General Instructions [facility] Emergency Department [address] [place] [address] Phone #: ext- [phone] 10/08/2020 10:54 Patient: TANIKA DANIEL I Sex: [...] to seek medical advice 8 General Instructions [facility] Emergency Department [address] [place] [address] Phone #: [phone] ext- [phone] 10/08/2020 10:54 Patient: TANIKA DANIEL I Sex: [...] blood in stool or black, tarry stools [id number] [employer]. [address] [place] [address]. All rights reserved. This information is not [...] bleeding. These are not 9 General Instructions [facility] Emergency Department [address] [place] [address] Phone #: ext- [phone] 10/08/2020 10:54 Patient: [...] following occur: Loss of consciousness Vomiting blood [id number] [place] [address]. All rights reserved. This information is not intended as asubstitute for professional medical care. Always follow your healthcare prof essional's instructions. You have been given the following additional information: Lower GI Bleeding (Stable) Hemorrhoids Hemorrhoids Lower GI Bleeding (Stable) No strenuous activity until better. 10 General Instructions [facility] Emergency Department [address] [place], [place] [address] Phone #: ext- [phone] 10/08/2020 10:54 Patient: TANIKA DANIEL I Sex: F : 1990 Age: 29y(Electronically signed by NAYELI Goodman 10/08/2020 12:36) Name Value Range Interpretation Code Description Data Jada rce(s) Supporting Document(s) ID Date Data Source [id number] 10/08/2020 11:07:00 AM EDT [facility] 1 Clinical Report - Nurses [facility] Emergency Department [address] [place] [address] Phone #: ext- [phone] 10/08/2020 10:54 Patient: [...] she has a BM. She went to [facility] on[facility] and they gave her preparation H and did a rectal exam. She was seen by her [employer] PA yesterday andwas given an emergency referral to Dr. Beach. 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 2 Clinical Report - Nurses [facility] Emergency Department [address] [place] [address] Phone #: ext- [phone] 10/08/2020 10:54 Patient: [...] PROGRESS NOTES 3 Clinical Report - Nurses [facility] Emergency Department [address] [place] [address] Phone #: ext- [phone] 10/08/2020 10:54 [facility]: [id number] Sex[facility] F : 1990 Age: 29y Patient gowned. Reassurance given. Two patient identifiers checked. Call light placed in reach. Patient ready for evaluation- PA notified. --11:08 10/08/20 Idania Olsen R.N. 11:30 10/08/20. Cable Machine Operator provided for the rectal exam by the physician (Cable Machine Operator with Ron TYLER). --12:20 10/08/20 Idania Olsen [...] saturation: 99%. Temp: 97.9 F. --12:13 10/08/20 [facility] Tech, [facility], Tech1 Condition at departure: stable. No learning barriers present. Discharge instructions provided and reviewed with the patient. Treatments reviewed (sitz bath). Reviewed referral to a surgeon. Work note given. Patient verbalized understanding. Written instructions provided in Portuguese. The patient was discharged by the physician assistant sales manager. She was discharged home and accompanied by senior loan processor. She left ambulatory and via private vehicle. 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 --12:20 10/08/20 Idania Olsen R.N. 12:21 10/08/20. Pain level now: 5/10. --12:21 10/08/20 Idania Olsen R.N.Locked/Released at 10/08/2020 12:21 by Idania Olsen R.N. Name Value Range Interpretation Code Description Data Jada rce(s) Supporting Document(s) ID Date Data Source [id number] 10/08/2020 11:07:00 AM EDT [facility] 1 Clinical Report - Physicians/Mid Levels [facility] Emergency Department [address] [place] [address] Phone #: ext- [phone] 10/08/2020 10:54 Patient: [...] travel. 2 Clinical Report - Physicians/Mid Levels [facility] Emergency Department [address] [place] [address] Phone #: [phone]- [phone] 10/08/2020 10:54 Patient: TANIKA DANIEL I Sex: [...] 6.90) 3 Clinical Report - Physicians/Mid Levels [facility] Emergency Department [address] [place] [address] Phone #: ext- [phone] 10/08/2020 10:54 Patient: TANIKA DANIEL I Sex: [...] Male GFR Interprentation 20-49 yrs >60 mL/min Czcykn08-65 yrs >56 mL/min Normal 60-69 yrs >49 mL/min Normal 70-79yrs>42 mL/min Normal 80 and above >35 mL/min Normal Female GFRInterpretation 20-39 yrs >60 mL/min Normal 40-49 yrs >58 mL/minNormal 50-59 yrs >51 mL/min Normal 60-69 yrs >45 mL/min Ggeqfj04-67 yrs >39 mL/min Normal 80 and above [...] Negat 4 Clinical Report - Physicians/Mid Levels [facility] Emergency Department [address] [place] [address] Phone #: cki- [phone] 10/08/2020 10:54 Patient: TANIKA DANIEL I Sex: [...] NEGATIVE (NORMAL: NEGAT { HEMOCCULT LOT # [id number] [id number] ){ LOT EXP DATE 12.04 ){ [...] MEDICATIONS: 5 Clinical Report - Physicians/Mid Levels [facility] Emergency Department [address] [place] [address] Phone #: ext- [phone] 10/08/2020 10:54 Patient: TANIKA DANIEL I Sex: [...] rce(s) Supporting Document(s) ID Date Data Source [id number] 10/08/2020 11:58:00 AM EDT [facility] Name Value Range Interpretation Code Description Data Jada rce(s) Supporting Document(s) [facility] COL[facility] yellow NORMAL: Yellow [facility] CLARITY clear NORMAL: Clear [facility] Specific gravity of Urine by Test strip 1.030 1.001 - 1.030 [facility] pH 5 5 - 9 [facility] al Glucose [Mass/volume] in Urine by Test strip NORM NORMAL: Negat [facility] Bilirubin.total [Presence] in Urine by Test strip NEG NORMAL: Negative [facility] Ketones [Presence] in Urine by Test strip 150 NORMAL: Negative [facility] Protein [Mass/volume] in Urine by Test strip 30 NORMAL: Negat [facility] Nitrite [Presence] in Urine by Test strip NEG NORMAL: Negative [facility] BLOOD 50 NORMAL: Negative [facility] Leukocyte esterase [Presence] in Urine by Test strip NEG BON L: Negative [facility] Urobilinogen [Mass/volume] in Urine by Test strip 1 less michael n 1.0 mg/dL [facility] MICROSCOPIC See Below [facility] ital WBC 0 - 1 NORMAL: NONE SEEN [facility] Erythrocytes [#/volume] in Urine by Test strip 1 - 3 NORMAL: NON E SEEN [facility] EPITHELIAL FEW NORMAL: NONE SEEN [facility] Bacteria [Presence] in Urine sediment by Light microscopy Tr jayden NORMAL: NONE SEEN [facility] Casts [#/area] in Urine sediment by Microscopy low power field See Be low [facility] Hyaline casts [#/area] in Urine sediment by Microscopy low p ower field 3-5 NORMAL: None Seen [facility] ID Date Data Source [id number] 10/08/2020 11:58:00 AM EDT [facility] Name Value Range Interpretation Code Description Data Jada rce(s) Supporting Document(s) COMPREHENSIVE METABOLIC PANEL [facility] COMPREHENSIVE METABOLIC PANEL Sodium [Moles/volume] in Serum or Plasma 134 mEq/L 134 - 153 [facility] Potassium [Moles/volume] in Serum or Plasma 4.3 mEq/L 3.6 - 5.0 [facility] Chloride [Moles/volume] in Serum or Plasma 99 mEq/L 98 - 107 [facility] Carbon dioxide, total [Moles/volume] in Serum or Plasma 18 MEQ/L 22 - 30 L [facility] Glucose [Mass/volume] in Serum or Plasma 77 MG/DL 70 - 99 [facility] BUN 8 MG/DL 7 - 21 [facility] al Creatinine [Mass/volume] in Serum or Plasma 0.7 MG/DL 0.7 - 1.5 [facility] BUN/CREAT 11 8 - 27 [facility] Protein [Mass/volume] in Serum or Plasma 8.8 G/DL 6.3 - 8.2 H [facility] Albumin [Mass/volume] in Serum or Plasma 4.7 G/DL 3.9 - 5.0 [facility] Globulin [Mass/volume] in Serum by calculation 4.1 GM/DL 2.4 - 3.2 H [facility] A/G RATIO 1.1 0.8 - 2.0 [facility] Calcium [Mass/volume] in Serum or Plasma 10.0 MG/DL 8.4 - 10.2 [facility] Bilirubin.total [Mass/volume] in Serum or Plasma 0.7 MG/DL 0.2 - 1.3 [facility] Alkaline phosphatase [Enzymatic activity/volume] in Serum or Plasma 86 U/L 38 - 126 [facility] Aspartate aminotransferase [Enzymatic activity/volume] in Serum or Plasma 33 U/L 5 - 40 [facility] Alanine aminotransferase [Enzymatic activity/volume] in Seru m or Plasma 41 U/L 7 - 56 [facility] Anion gap 3 in Serum or Plasma 17.0 mmol/L 8.0 - 16.0 H [facility] AGE 29 yrs [facility] NON-AA GFR >60 mL/min [facility] ital AFR AMER GFR >60 mL/min [facility] Male GFR In terprentation [...] >32 mL/min Normal ID Date Data Source [id number] 10/08/2020 11:52:00 AM EDT [facility] Name Value Range Interpretation Code Description Data Jada rce(s) Supporting Document(s) CBC W/AUTOMATED DIFF [facility] COMPLETE BLOOD COUNT Leukocytes [#/volume] in Blood by Automated count 7.7 10^3/uL 4.2 - 1 1.0 [facility] Erythrocytes [#/volume] in Blood by Automated count 5.05 10^6/uL 4. 20 - 5.40 [facility] Hemoglobin [Mass/volume] in Blood 14.9 g/dL 12.0 - 16.0 [facility] Hematocrit [Volume Fraction] of Blood by Automated count 44.0 % 3 7.0 - 47.0 [facility] Erythrocyte mean corpuscular volume [Entitic volume] by Auto mated count 87.1 fL 81.0 - 101 [facility] Erythrocyte mean corpuscular hemoglobin [Entitic mass] by Automated count 29.5 pg 27.0 - 34.0 [facility] Erythrocyte mean corpuscular hemoglobin concentration [Mass/volume] by Automated count 33.9 g/dL 31.0 - 36.0 [facility] Erythrocyte distribution width [Ratio] by Automated count 13.0 % 11.5 - 14.5 [facility] Platelets [#/volume] in Blood by Automated count 359 10^3/uL 150 - 45 0 [facility] Platelet mean volume [Entitic volume] in Blood by Automated count 9.9 fL 7.4 - 10.4 [facility] Neutrophils/100 leukocytes in Blood by Automated count 69.6 % 37. 0 - 80.0 [facility] Lymphocytes/100 leukocytes in Blood by Manual count 18.0 % 25.0 - 40.0 L [facility] Monocytes/100 leukocytes in Blood by Automated count 10.3 % 3.0 - 8.0 H [facility] Eosinophils/100 leukocytes in Blood by Automated count 1.6 % 0.0 - 7.0 [facility] Basophils/100 leukocytes in Blood by Automated count 0.4 % 0.0 - 2.5 [facility] %IG 0.1 % 0.0 - 0.0 H [facility] al %NRBC 0.0 % 0.0 - 0.0 [facility] al Neutrophils [#/volume] in Blood by Automated count 5.34 10^3/uL 2.00 - 6.90 [facility] Lymphocytes [#/volume] in Blood by Automated count 1.38 10^3/uL 0.60 - 3.40 [facility] Monocytes [#/volume] in Blood by Automated count 0.79 10^3/uL 0.00 - 0.90 [facility] Eosinophils [#/volume] in Blood by Automated count 0.12 10^3/uL 0.00 - 0.70 [facility] Basophils [#/volume] in Blood by Automated count 0.03 10^3/uL 0.00 - 0.20 [facility] #IG 0.01 10^3/uL 0.00 - 0.10 [facility] ospital #NRBC 0.00 10^3/uL 0.00 - 0.00 [facility]ital MANUAL DIFF NOT INDICATED [facility] RBC MORPH NOT INDICATED [facility] spital ID Date Data Source [id number] 10/08/2020 11:39:00 AM EDT [facility] Name Value Range Interpretation Code Description Data Jada rce(s) Supporting Document(s) OCCULT BLOOD NEGATIVE NORMAL: NEGATIVE [facility] OCCULT BLOOD REENTER NEGATIVE NORMAL: NEGATIVE [facility] { HEMOCCULT LOT # [id number] ){ LOT EXP DATE 12.04 ){ PROCEDURAL CONTROL POS/NEG VALID ) Procedure Social History No Information Vital Signs ID Date Data Source UNK Name Value Range Interpretation Code Description Data Source(s) Body mass index (BMI) [Ratio] 28.9 kg/m2 28.9 k g/m2 [facility] ([facility]) Systolic blood pressure 178 mm[Hg] 178 mm[Hg] [facility] ([facility]) Diastolic blood pressure 92 mm[Hg] 92 mm[Hg] [facility] ([facility]) Heart rate 89 /min 89 /min [facility] ([facility]) Body temperature 98.7 [degF] 98.7 [degF] [facility] ([facility]) Respiratory rate 20 /min 20 /min [facility] ( [facility]) Oxygen saturation in Arterial blood by Pulse oximetry 97 % 97 % [facility] ([facility]) Body weight 207.00 [lb_av] 207.00 [lb_av] [facility] ([facility]) Body weight 93.895 kg 93.895 kg [facility] ([facility]) Body height 71 [in_i] 71 [in_i] [facility] ([facility]) 5'11" Body surface area Derived from formula 2.14 m2 2.14 m2 [facility] ([facility]) ID Date Data Source [id number] 10/26/2020 10:26:38 AM EDT [facility] Name Value Range Interpretation Code Description Data Source(s) WEIGHT RECORDED 205.80 pounds 205.80 pounds [facility] Height 71 Inches 071 Inches [facility]
[2021-06-22 01:22] VITALS: BP 116/57
[2021-06-22 07:01] VITALS: BP 142/64
[2021-06-22] MEDS ORDERED: SERTRALINE HCL 50 MG TAB PO SCH (09:00)
--- NOTE | 2021-06-22 10:45 | ECGEPIP ---
[facility] - ED Test Date: 2021-06-20 Pat Name: TANIKA DANIEL Department: Room: - Gender: Female [employer] Preparer: : 1990 Requested By: MELY Rosales Order Number: [id number] Reading MD: Yves Ann Measurements Intervals [place] Rate: 70 P: 66 NM: 166 QRS: 57 QRSD: 86 T: 44 QT: 394 QTc: 425 Interpretive Statements Normal sinus rhythm with sinus arrhythmia Rate increased from tracing done 10-22-20 Electronically Signed on 06-22-2021 10:44:57 EST by Yves Ann
[2021-06-22] MEDS: busPIRone 5 MG TAB PO SCH ×2 (12:19→20:28)
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
[2021-06-22] MEDS ORDERED: NICOTINE 21MG/24HR 1 EA TRANSDERMAL TD PRN (12:25)
[2021-06-22 16:16] VITALS: BP 120/68
[2021-06-22] MEDS: PRAZOSIN 1 MG CAP PO SCH (20:28)
[2021-06-22] MEDS: traZODone 50 MG TAB PO PRN (21:56)
[2021-06-23 06:14] VITALS: BP 129/61
[2021-06-23] MEDS: SERTRALINE 100 MG TAB PO SCH (09:08)
[2021-06-23] MEDS: busPIRone 5 MG TAB PO SCH (09:08)
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
[2021-06-23 17:54] VITALS: BP 136/83
[2021-06-23 21:41] VITALS: BP 136/83
[2021-06-23] MEDS: PRAZOSIN 1 MG CAP PO SCH (21:41)
[2021-06-23] MEDS: busPIRone 10 MG TAB PO SCH (21:41)
[2021-06-23] MEDS: traZODone 50 MG TAB PO PRN (22:39)
[2021-06-24 07:12] VITALS: BP 112/55
[2021-06-24] MEDS: SERTRALINE 100 MG TAB PO SCH (09:05)
[2021-06-24] MEDS: busPIRone 10 MG TAB PO SCH (09:06)
[2021-06-24] MEDS ORDERED: NICO21PAT TD (09:15)
[2021-06-24] MEDS ORDERED: TRAZ-252 PO (09:15)
[2021-06-24] MEDS ORDERED: BUSP10TA PO (09:15)
[2021-06-24] MEDS ORDERED: ZOLO100T PO (09:15)
[2021-06-24] MEDS ORDERED: MINI1CAP PO (09:15)
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
== END 2021-06-24 12:45 | disposition home or self-care (01) | DRG 885 ==
LOC: EDBD 15:40 → M ED 15:40 → M ED INP 06-21 18:08 → M PSY 06-22 01:06
PROVIDERS: ADMIT Psychiatry & Neurology Psychiatry; ATTEND Student in an Organized Health Care Education/Training Program
DX: F33.2 Major depressive disorder, recurrent severe without psychotic features (principal); R45.851 Suicidal ideations; F43.12 Post-traumatic stress disorder, chronic; F41.0 Panic disorder [episodic paroxysmal anxiety]; G47.00 Insomnia, unspecified; F17.200 Nicotine dependence, unspecified, uncomplicated; Z62.810 Personal history of physical and sexual abuse in childhood; Z91.013 Allergy to seafood; Z79.899 Other long term (current) drug therapy; Z56.3 Stressful work schedule

== ENCOUNTER → 2021-10-11 | Outpatient (REF) ==
[~2021-10-11] MED LIST changes: +ALLE24TA7 PO; +BUSP10TA PO; +MINI1CAP PO; +NICO21PAT TD; +SERT25TA21 PO; +SERT50TA29 PO; +TRAZ-252 PO; +ZOLO100T PO
== END ==
LOC: M PLAIMG 10:25
PROVIDERS: ATTEND Internal Medicine
DX: R06.02 Shortness of breath (principal)

== ENCOUNTER 2022-03-02 08:01 | Observation (INO) | payer SELFPAY ==
[~2022-03-02] VITALS: Ht 182.9 cm; Wt 121.6 kg
[~2022-03-02 08:01] MED LIST changes: +HEPARIN SOD (PORCINE) 5000UNITS/ML 1ML VIAL/SYRINGE SQ ONE; +PRAZ1CAP PO; +ceFAZolin SOD 2 GM in IV 1 EA IV ONE
[2022-03-02] MEDS ORDERED: LR 1,000 ML IV SCH ×2 (08:35→12:40)
[2022-03-02] MEDS ORDERED: propofoL 200 MG/20 ML VIAL As Ordered ONE (08:45)
[2022-03-02] MEDS ORDERED: LIDOCAINE 2% 100MG/5ML SDV (FOR ANES.) As Ordered ONE (08:45)
[2022-03-02] MEDS ORDERED: ONDANSETRON 4MG 2ML VIAL As Ordered ONE (08:45)
[2022-03-02] MEDS ORDERED: ROCURONIUM BROMIDE 50 MG/5 ML VIAL As Ordered ONE ×2 (08:45→12:42)
[2022-03-02] MEDS ORDERED: MIDAZOLAM INJ 2MG/2ML VIAL (J2250 PER 1MG) As Ordered ONE (08:45)
[2022-03-02] MEDS ORDERED: dexameTHASONE 4 MG/ML 1ML VIAL (J1100 PER 1MG) As Ordered ONE (08:45)
[2022-03-02] MEDS ORDERED: fentaNYL 250 MCG/5 ML INJECTION As Ordered ONE (08:45)
[2022-03-02 08:56] LABS: HEMATOCRIT 41.4 % (36.0-47.0); HEMOGLOBIN 13.5 g/dl (12.0-15.5); MEAN CORPUSCULAR HEMOGLOBIN 28.9 pg (27.0-33.0); MEAN CORPUSCULAR HGB CONC 32.6 g/dl (32.0-36.5); MEAN CORPUSCULAR VOLUME 88.7 fl (80.0-96.0); PLATELET COUNT, AUTOMATED 462 10^3/uL (150-450); RED BLOOD COUNT 4.67 10^6/uL (4.00-5.40); WHITE BLOOD COUNT 7.4 10^3/uL (4.0-10.0)
[2022-03-02] MEDS ORDERED: SUGAMMADEX SODIUM 500 MG/5 ML VIAL (BRIDION) As Ordered ONE (08:56)
[2022-03-02] MEDS ORDERED: ACETAMINOPHEN 1000MG 100ML IV BTL (OFIRMEV) (J0131 PER 10MG) As Ordered ONE (08:56)
[2022-03-02] MEDS ORDERED: SEVOFLURANE INHAL SOLN 250 ML BTL As Ordered ONE (08:56)
[2022-03-02] MEDS ORDERED: LACRILUBE (AKWA TEARS) OPHTH OINT 3.5 GM As Ordered ONE (08:56)
[2022-03-02 09:22] LABS: BLOOD UREA NITROGEN 11 MG/DL (7-18); CARBON DIOXIDE LEVEL 25 MEQ/L (21-32); CHLORIDE LEVEL 107 MEQ/L (98-107); GLOMERULAR FILTRATION RATE > 60.0 (>60); GLUCOSE, FASTING 108 MG/DL (70-100); SODIUM LEVEL 136 MEQ/L (136-145)
[2022-03-02] MEDS ORDERED: LIDOCAINE 1% SDV 30ML VIAL As Ordered ONE (09:36)
[2022-03-02] MEDS ORDERED: EPINEPHrine INJ 1 MG/ML 1ML AMP As Ordered ONE (09:36)
[2022-03-02] MEDS ORDERED: METOCLOPRAMIDE INJ 10MG/2ML VIAL (J2765 PER 1) As Ordered ONE (12:00)
[2022-03-02] MEDS ORDERED: HYDROmorphone HCL 2MG/ML 1ML VIAL As Ordered ONE (12:07)
[2022-03-02] MEDS ORDERED: fentaNYL 100 MCG/2 ML INJECTION IV PRN (12:40)
[2022-03-02] MEDS ORDERED: ONDANSETRON 4MG 2ML VIAL IV PRN ×2 (12:40→13:05)
[2022-03-02] MEDS ORDERED: PERCOCET 5MG/325MG TAB PO PRN ×2 (13:05)
[2022-03-02] MEDS ORDERED: ACETAMINOPHEN TAB 650MG DOSE (2X325MG) PO PRN (13:05)
[2022-03-02] MEDS: MORPHINE 2 MG/ML 1ML VIAL IV PRN ×2 (13:35→13:51)
[2022-03-02] MEDS: oxyCODONE 5MG TAB PO PRN ×2 (13:35→14:09)
[2022-03-02] MEDS: LR 1,000 ML IV SCH ×2 (13:51→20:41)
[2022-03-02 14:30] VITALS: BP 152/89
[2022-03-02 15:00] VITALS: BP 147/79
[2022-03-02 15:30] VITALS: BP 159/99
[2022-03-02 16:30] VITALS: BP 145/85
[2022-03-02] MEDS ORDERED: diphenhydrAMINE 25MG CAP PO PRN (17:05)
[2022-03-02] MEDS: ceFAZolin SOD 1 GM in D5W MINI-BAG PLUS 50 ML IV SCH (17:13)
[2022-03-02] MEDS ORDERED: FAMOTIDINE 20MG/2ML VIAL IVP PRN (20:00)
[2022-03-02] MEDS ORDERED: diphenhydrAMINE 50MG/ML VIAL (J1200) IV PRN (20:15)
[2022-03-02 22:00] VITALS: BP 138/88
[2022-03-03] MEDS: ceFAZolin SOD 1 GM in D5W MINI-BAG PLUS 50 ML IV SCH (01:16)
[2022-03-03 02:00] VITALS: BP 130/82
[2022-03-03 06:00] VITALS: BP 130/69
[2022-03-03] MEDS: LR 1,000 ML IV SCH (09:05)
[2022-03-03] MEDS ORDERED: PEPC40TA12 PO (09:59)
[2022-03-03] MEDS ORDERED: PERCOCET PO (09:59)
[2022-03-03 10:00] VITALS: BP 133/83
== END 2022-03-03 11:50 | disposition home or self-care (01) ==
LOC: M SDC 08:01 → M ED INP 08:02 → M MS5PR 14:15
PROVIDERS: ADMIT Plastic Surgery Surgery of the Hand; ATTEND Plastic Surgery Surgery of the Hand
DX: E88.1 Lipodystrophy, not elsewhere classified (principal); M35.6 Relapsing panniculitis [Weber-Christian]; F17.210 Nicotine dependence, cigarettes, uncomplicated
CPT/HCPCS: 15877; 36415; 80048; 81025; 85027; 88300; 96374; 96375; 96376; J0131; J0171; J0690; J1100; J1170; J1200; J1644; J2250; J2270; J2405; J2765; J3010